=== PATIENT | female | born 1935 | race Caucasian/White ===

== ENCOUNTER 2020-02-02 13:31 | Inpatient (IN) | payer MEDICARE, MEDICAID ==
[2020-02-02] MEDS ORDERED: Acetaminophen 325 MG TAB PO PRN (16:47)
[2020-02-02] MEDS ORDERED: Acetaminophen 650 MG Suppository PR PRN (16:47)
[2020-02-02 17:33] LABS: Hemoglobin 9.1 g/dL (12.0-16.0)
[2020-02-02 17:48] LABS: Lactic Acid 1.3 mmol/L (0.5-2.2)
[2020-02-02 17:52] LABS: Anion Gap 11 mmol/L (10-20); BUN (Urea Nitrogen) 14 mg/dL (9.8-20.1); Calc. Creatinine Clearance 37 mL/min (70-130); Calcium 8.5 mg/dL (7.8-10.44); Carbon Dioxide 24 mmol/L (23-31); Chloride 91 mmol/L (98-107); Glucose 98 mg/dL (83-110); Magnesium 1.4 mg/dL (1.6-2.6); Potassium 3.3 mmol/L (3.5-5.1); Sodium 123 mmol/L (136-145)
--- NOTE | 2020-02-02 17:54 | PDOC.HHP ---
Hospitalist HPI - History of Present Illness History of Present Illness: ADMISSION DATE: 02/02/2020 TIME OF ASSESSMENT: 1600 PRIMARY CARE PHYSICIAN: Dr. Jackson CHIEF COMPLAINT: Syncope and fall HPI: This is an 84-year-old woman who presents to the emergency department today after having a syncopal episode at home. It was witnessed by her daughter who is with her. Patient states that she completely blacked out and fell backwards onto her back. She hit the back of her head but denies having any discomfort associated with that. Complains mainly of left hip pain and was unable to stand following the fall. Reports having a mechanical fall yesterday afternoon while she was home alone. The patient states that she was doing laundry and bent over to get clothing out of the dryer. Upon standing up she lost her balance and fell backwards onto her back. She was able to stand up and walk without difficulty after that though she does report having mild discomfort. Denies any preceding lightheadedness or dizziness. No chest pain palpitations or recent shortness of breath. Patient states that today however she did feel lightheaded prior to the syncopal event. EMS was called and she was alert and oriented upon their arrival. She is not sure how long she had loss of consciousness but thinks she recalls her daughter calling her name when she was on the ground. ROS: She states she has been doing well in recent days. Denies having any nausea or vomiting. No complaints of dizziness. Has not had any fevers chills or sweats. No cough or hemoptysis. Reports frequent urination which she states comes and goes but denies any dysuria. Endorses low appetite and eats small quantities throughout the day. States her fluid intake is not the best. Denies any abdominal pain. Ports normal bowel movements. All other review systems are negative ED COURSE: She was initially seen at [facility] where she underwent she underwent a CT of the head that showed no acute intracranial findings. Chest x-ray done showed no acute thoracic findings. CT obtained of the left lower extremity demonstrated a pathologic fracture of the greater trochanter the 2.4 cm destructive lesion present in the trochanteric itself. Laboratory studies showed a white count of 11.1, hemoglobin 9.4, hematocrit 27.8, platelets 173, neutrophils 86.4%, sodium 123, BUN 15, GFR 53, creatinine 0.99. T is notable for bilirubin of 1.6. Otherwise unremarkable. UA showed trace blood, positive nitrites, large leukocyte esterase, 21-50 white blood cells, 4+ bacteria. She received IV fluid in the ED and fentanyl was given for her pain. PAST MEDICAL HISTORY: 1. Hyperlipidemia 2. Hypertension 3. Hyponatremia 4. Aortic valve disorder 5. History of skin cancer PAST SURGICAL HISTORY: Reports excision of an area of skin cancer in her left thigh SOCIAL HISTORY: Patient lives alone but states her daughter lives next door. Her daughter spends every morning with her from 9-12 and she frequently has visitors. Recently started using a cane to get around her home. Denies any tobacco use or alcohol consumption. FAMILY HISTORY: Noncontributory ALLERGIES: No known drug allergies CURRENT MEDICATIONS: Metoprolol succinate 50 mg p.o. daily Losartan/HCTZ 100 mg / 25 mg p.o. daily Atorvastatin 40 mg p.o. daily Vitamin D2 1000 units p.o. daily Vital signs temp 98.3, HR 64, RR 18, O2 sat 90% on room air, BP 170/71. - Exam General Appearance: NAD, awake alert Eye: PERRL ENT: normocephalic atraumatic, no oropharyngeal lesions, dry oral mucosa Neck: supple, no lymphadenopathy Heart: RRR, normal peripheral pulses, murmur present (loud systolic murmur) Respiratory: CTAB, no wheezes, no rales, no ronchi, normal chest expansion, no tachypnea Gastrointestinal: soft, non-tender, non-distended, normal bowel sounds, no guarding, no rigidity Extremities: no edema Skin: tenting Neurological: cranial nerve grossly intact, normal sensation to touch, no weakness Musculoskeletal: normal tone, normal strength, no muscle wasting Musculoskeletal - other findings: tenderness to left hip region, able to move her legs without severe pain Psychiatric: normal affect, normal behavior, A&O x 3 Hospitalist Results - Labs Result Diagrams: 02/02/20 17:21 Lab results: Hgb 9.1 g/dL (12.0-16.0) L 02/02/20 17:21 Hct 26.2 % (36.0-47.0) L 02/02/20 17:21 Lactic Acid 1.3 mmol/L (0.5-2.2) 02/02/20 17:21 Hospitalist H&P A/P - Problem (1) Syncope and collapse Code(s): R55 - SYNCOPE AND COLLAPSE Status: Acute Assessment and Plan: Possibly secondary to underlying infection and/or dehydration vs. weakness from hyponatremia. Cardiac monitoring. Echo ordered. Carotid US. Unable to obtain Orthostatic BPs due to left leg fracture. Falls precaution. CK ordered. (2) Head injury Code(s): S09.90XA - UNSPECIFIED INJURY OF HEAD, INITIAL ENCOUNTER Status: Acute Assessment and Plan: CT head negative. No neuro deficits on exam. Continue to monitor. Hold DVT pharmacoprophylaxis for now. (3) Fracture of greater trochanter of left femur Code(s): S72.112A - DISP FX OF GREATER TROCHANTER OF LEFT FEMUR, INIT Status: Acute Assessment and Plan: Possibly pathologic fracture. Ortho eval and recommendations appreciated Pain free at present. Hold DVT pharmacoprophylaxis, pending ortho review. (4) UTI (urinary tract infection) Status: Suspected Assessment and Plan: Urinary frequency without dysuria. No culture obtained at [place] [facility] Will repeat UA/UCx via straight cath to obtain a better sample. Mild leukocytosis, monitor. Lactic acid ordered. Afebrile. Hold antibiotics until UA/UCx done. (5) Hyponatremia Code(s): E87.1 - HYPO-OSMOLALITY AND HYPONATREMIA Status: Acute Assessment and Plan: BNP ordered. Await results before giving more fluids. Received IV fluids in ED. Will recheck BMP as well. Consider nephrology consult if indicated. Serum osmolality, urine osmolality and urine Na+ ordered. (6) Total bilirubin, elevated Code(s): R17 - UNSPECIFIED JAUNDICE Status: Acute Assessment and Plan: Repeat LFTs in the AM including direct bili. RUQ ultrasound (7) Hypertension Code(s): I10 - ESSENTIAL (PRIMARY) HYPERTENSION Status: Chronic Assessment and Plan: Monitor BP. Resume home medications as appropriate once verified. (8) Hyperlipidemia Code(s): E78.5 - HYPERLIPIDEMIA, UNSPECIFIED Status: Chronic Assessment and Plan: Resume home medications once verified. - Plan Plan: DVT Prophylaxis with mechanical SCDs. Surrogate decision maker is her daughter Bhavya Patrick.
[2020-02-02 18:23] LABS: CKMB 9.9 ng/mL (0-6.6)
[2020-02-02 18:50] LABS: Bacteria/HPF 4+ HPF (None Seen); Bilirubin Negative (Negative); Blood, Urine Negative (Negative); Clarity Clear (Clear); Glucose, Urine (Dipstick) Normal (Negative); Ketone, Urine Negative (Negative); Leukocyte 500 Leu/uL (Negative); Nitrite Negative (Negative); Protein, Urine (Dipstick) Negative (Neg-Trace); RBC/HPF 0-3 HPF (0-3); Specific Gravity, Urine 1.006 (1.002-1.036); Squamous Epithelial 0-3 HPF (0-3); Urobilinogen Normal mg/dL (Less than 2); WBC/HPF 21-50 HPF (0-3)
[2020-02-02 18:55] LABS: Urine Culture Reflex Yes Yes
[2020-02-02] MEDS ORDERED: Potassium Chloride 20 MEQ TAB PO SCH (19:00)
[2020-02-02] MEDS ORDERED: Sodium Chloride 0.9% 1,000 ML IV SCH (19:00)
[2020-02-02] MEDS ORDERED: Magnesium 2 GM/50 ML 2 GM in Premix Bag 1 BAG IVPB SCH (19:00)
--- NOTE | 2020-02-02 21:38 | ULT ---
BILATERAL CAROTID DUPLEX ULTRASOUND: HISTORY: Syncope TECHNIQUE: Grayscale, color-flow and spectral Doppler ultrasound imaging of the extracranial carotid artery syst ems was performed bilaterally. FINDINGS: There is plaque formation on either side.. There is suggestion of ulcerative plaque in the left commo n carotid artery. The peak systolic velocity in the right ICA measures 65 cm/s with an end-diastolic velocity of 16 cm/ s and a systolic ratio of 1.06. The peak systolic velocity in the left ICA measures 89 cm/s with an end-diastolic velocity of 9 c m/s and a systolic ratio of 0.85. Flow in both vertebral arteries remains antegrade. IMPRESSION: 1. No evidence of hemodynamically significant stenosis in the ICAs on either side. 2. Possible ulcerative plaque in the left common carotid artery.
--- NOTE | 2020-02-02 22:02 | ULT ---
RIGHT UPPER QUADRANT ULTRASOUND: 02/02/20 HISTORY: Elevated bilirubin. FINDINGS: The liver and pancreas appear normal. No gallstones are seen. The gallbladder wall this thickened ashlee suring 4 mm. No pericholecystic fluid is identified. The common duct measures 3 mm in diameter. Ther e is mild hydronephrosis in the right kidney. No free fluid is seen in Farias's pouch. IMPRESSION: 1. Gallbladder wall thickening without cholelithiasis. 2. Mild right sided hydronephrosis. POS: OFF
[2020-02-03 03:57] LABS: #Eosinphils 0.1 thou/uL (0.0-0.7); #Lymphocytes 1.4 thou/uL (1.20-3.40); #Monocytes 0.9 thou/uL (0.11-0.59); #Neutrophils 4.7 thou/uL (1.40-6.50); %Basophils 0.5 % (0.0-1.0); %Eosinophils 0.7 % (0.0-10.0); %Lymphocytes 19.9 % (21.0-51.0); %Monocytes 12.9 % (0.0-10.0); Hemoglobin 9.4 g/dL (12.0-16.0); Mean Corpuscular HGB CONC 34.6 g/dL (32.0-36.0); Mean Corpuscular Hemoglobin 32.5 pg (27.0-31.0); Mean Corpuscular Volume 93.9 fL (78.0-98.0); Mean Platelet Volume 6.5 fL (7.4-10.4); Platelet Count 185 thou/uL (130-400); RBC Distribution Width 11.3 % (11.5-14.5); Red Blood Cell (RBC) Count 2.88 mill/uL (4.20-5.40); White Blood Cell (WBC) Count 7.2 thou/uL (4.8-10.8)
[2020-02-03 04:20] LABS: ALT (SGPT) 11 U/L (8-55); AST (SGOT) 24 U/L (5-34); Albumin 3.3 g/dL (3.4-4.8); Alkaline Phosphatase 71 U/L (40-110); Bilirubin, Direct 0.5 mg/dL (0.1-0.3); Bilirubin, Total 1.2 mg/dL (0.2-1.2); Protein, Total 6.2 g/dL (6.0-8.3)
[2020-02-03 04:22] LABS: Anion Gap 15 mmol/L (10-20); BUN (Urea Nitrogen) 11 mg/dL (9.8-20.1); Calc. Creatinine Clearance 41 mL/min (70-130); Calcium 8.6 mg/dL (7.8-10.44); Carbon Dioxide 19 mmol/L (23-31); Chloride 95 mmol/L (98-107); Glucose 68 mg/dL (83-110); Lipase 34 U/L (8-78); Sodium 125 mmol/L (136-145)
[2020-02-03] MEDS: Enoxaparin Sodium 40 MG/0.4 ML SYRINGE SC SCH (08:26)
--- NOTE | 2020-02-03 08:57 | RAD ---
Exam: Left hip 2 views: HISTORY: Follow-up left hip fracture, injury COMPARISON: Prior CT scan, 02/02/2020 FINDINGS: Severe bone demineralization with prominent vascular calcification. Evidence for a minimally displaced fracture involving the greater trochanter which appears to be less displaced than on the prior CT scan. IMPRESSION: Evidence for a greater trochanteric fracture with minimal displacement but less so than on the prior CT scan.
[2020-02-03] MEDS: cefTRIAXone\\ROCEPHIN 1 GM in Sodium Chloride 0.9% 100 ML IVPB SCH (10:36)
--- NOTE | 2020-02-03 12:01 | CON ---
DATE OF CONSULTATION: This is Lenny Simmons PA-C dictating a report for Collins Hilliard MD. HISTORY OF PRESENT ILLNESS: We are asked by hospitalist, Zahraa GREEN, to see the patient for a fracture on her left troch. The patient states she has fallen a few times. She is quite hard of hearing, but remembers falling and feeling like she had blacked out. She landed on her left hip 2 times in the past week or 2. She is being worked up for reasons for blacking out and her dizziness. Currently, today, she is sitting up in the bed. Her legs are off the side of the bed. She does not appear to be in much pain. She is moving both lower extremities well. She has a little tenderness to palpation over the proximal hip. Denies any numbness or tingling down the legs. PAST MEDICAL HISTORY: Can be gleaned from Zahraa GREEN's note. SOCIAL HISTORY: Can be gleaned from Zahraa GREEN's note. PAST SURGICAL HISTORY: Can be gleaned from Zahraa GREEN's note. FAMILY HISTORY: Can be gleaned from Zahraa GREEN's note. MEDICATIONS: Can be gleaned from Zahraa GREEN's note. ALLERGIES: CAN BE GLEANED FROM ZAHRAA GREEN'S NOTE. REVIEW OF SYSTEMS: For orthopedics purposes, left hip pain. Otherwise, rest of review of systems currently is negative. PHYSICAL EXAMINATION: GENERAL: Well-nourished, pleasant female, who is very hard of hearing, sitting up in her bed with legs off the side in room 292, in no acute distress. Speech is clear. She is answering questions appropriately. HEENT: Scalp appears atraumatic and no tenderness with palpation. Face symmetric. Tongue midline. NECK: Supple. Trachea in midline. EXTREMITIES: Upper extremities, equal size, shape, symmetry. Normal bulk and tone. Respirations 16. No acute distress. Lower extremities also equal size, shape, symmetry. Normal bulk and tone. She does have some palpable tenderness over the proximal hip, but it does not appear to bother her all that much. She is moving both lower extremities well. Sensations, pulses intact. ASSESSMENT: Tip of the troch on the left fractured could be a pathologic fracture, which needs to be worked up. PLAN: I spoke with the patient, informed her she does not need surgery. She is quite elated by this. Probably, does not need any further orthopedic followup, but if there is truly a pathologic fracture, then she may want to get an MRI of that hip and have a further workup. If the patient's hip pain gets worse, should there are further problems, we will be happy to see her back. Job ID: [id number]
--- NOTE | 2020-02-03 16:12 | PDOC.HOSPP ---
- Subjective Encounter Date: 02/03/20 Encounter Time: 09:00 Subjective: Patient was seen and examined in bed. She did complain of some mild pain in her hip otherwise generally had no complaint. She was hungry and wanted to eat. She denied any chest pain or shortness of breath. - Objective Vital Signs & Weight: Vital Signs (12 hours) Temp Pulse Resp BP BP Pulse Ox 02/03/20 15:37 98.6 F 81 16 108/51 L 97 02/03/20 11:02 98.4 F 76 17 131/63 98 02/03/20 08:25 98.4 F 66 16 168/70 H 99 Weight Admit Weight 100 lb Weight 100 lb I&O: 02/02/20 02/03/20 02/04/20 06:59 06:59 06:59 Intake Total 300 Output Total 560 Balance -260 Result Diagrams: 02/03/20 03:21 02/03/20 03:21 Hospitalist ROS - Medication Medications: Active Medications Generic Name Dose Route Start Last Admin Trade Name Kieranq PRN Reason Stop Dose Admin Enoxaparin Sodium 40 mg 02/03/20 09:00 02/03/20 08:26 Enoxaparin Sodium 40 Mg/0.4 Ml Syringe SC 40 mg 0900 CHARLES Administration Ceftriaxone Sodium 1 gm/ 100 mls @ 200 mls/hr 02/03/20 10:00 02/03/20 10:36 Sodium Chloride IVPB 100 mls Q24HR CHARLES Administration - Exam General Appearance: awake alert Eye: PERRL, anicteric sclera Heart: RRR, no murmur, no gallops, normal peripheral pulses Respiratory: no wheezes, no rales, no ronchi, no tachypnea Gastrointestinal: soft, non-tender, non-distended, normal bowel sounds Extremities: no cyanosis, no clubbing, no edema Extremities - other findings: Mild tenderness in left hip Musculoskeletal: normal tone, normal strength, no muscle wasting Psychiatric: normal affect, A&O x 3 Hosp A/P - Plan 84-year-old female patient with a history of squamous cell cancer of the skin, valvular heart disease admitted a day ago on account of recurrent falls A pathologic fracture of the left greater trochanter was noted on imaging. Recurrent falls Etiology unclear with telemetry showing normal sinus rhythm Heart rate in the 50s to 60s Echocardiogram shows severe aortic stenosis Continue on telemetry monitoring Consult cardiology. Pathology call left trochanteric fracture. Orthopedics evaluatedno surgery recommended. Given her history of skin cancer would appreciate input from oncology. Oncology consult placed Severe aortic stenosis. Noted on echocardiogram Also has aortic stenosis murmur Possible cause of her falls Consult cardiology. Hypertension Blood pressure within normal limits Hold antihypertensive medications Gallbladder wall thickening. Gallbladder wall about 4 mm on ultrasound scan Done to evaluate mild hyperbilirubinemia Consult GI for the need of any further work-up. Hyponatremia Sodium was 123 now 125 Urine osmolality 222 Likely SIADH TSH within normal limits We will check serum cortisol in a.m. Fluid restrict to 1.5 L for the day Monitor BMP CODE STATUSfull code DVT prophylaxisLovenox
--- NOTE | 2020-02-03 18:14 | CON ---
DATE OF CONSULTATION: 02/03/2020 REASON FOR CONSULT: Swollen gallbladder wall on ultrasound. HISTORY OF PRESENT ILLNESS: Ms. Patrick is an 84-year-old female with history comes from review of the chart. She is very hard of hearing. She is here for a hip fracture. Apparently, she fell at home and broke her left hip. She denies any abdominal pain. She denies any pain with eating. She denies any heartburn. She denies any reflux. Reviewing the chart, it seems that on admission, she had a mildly elevated bilirubin of 1.6 on 02/01, following day a direct was 0.5 and total was 1.2. At some point in time, all of this triggered an ultrasound of the abdomen that showed the gallbladder was mildly thickened with no gallstones and there was some mild right-sided hydronephrosis. Duct was 3 mm. Again, in talking with the patient, she denies any abdominal pain, loss of appetite, or loss of weight. Denies bleeding, melena, or hematochezia. PAST MEDICAL HISTORY: Recent fall with left hip fracture, hyperlipidemia, hypertension, history of skin cancer in the past, history of aortic valve disorder. PAST SURGICAL HISTORY: Skin cancer in left thigh. SOCIAL HISTORY: The patient lives at home alone and has a daughter close by, next door apparently. ALLERGIES: NONE KNOWN. MEDICATIONS: At home; 1. Losartan. 2. Atorvastatin. 3. Vitamin D. 4. Metoprolol. Present medications here; 1. Tylenol. 2. Rocephin. 3. Lovenox. 4. Pneumovax. 5. Normal saline. PHYSICAL EXAMINATION: GENERAL: The patient is resting comfortably in bed. She is hard of hearing. VITAL SIGNS: Temperature 98, pulse blood pressure 108/51. NECK: There is mild JVD. LUNGS: Clear. HEART: Regular rate and rhythm without clicks or murmurs. ABDOMEN: Soft and nontender. There is no palpable hepatosplenomegaly. There is no hepatojugular reflux. EXTREMITIES: There is no peripheral edema. LABORATORY DATA: As per HPI. Echocardiogram shows EF 50% to 60%, severe aortic stenosis is present, moderate aortic regurgitation is noted. ASSESSMENT: 1. Recurrent syncopal episodes, likely related to severe aortic stenosis. 2. Mild elevation of bilirubin, resolved. 3. Mild edema of the gallbladder wall. There is nothing that appears pathologic about this, and her age with severe aortic stenosis, we would not even consider working this up. We will sign off at this time. If I can be of any further assistance in the patient's care, please do not hesitate to contact me. Job ID: [id number]
[2020-02-04 08:08] LABS: Anion Gap 11 mmol/L (10-20); BUN (Urea Nitrogen) 16 mg/dL (9.8-20.1); Calc. Creatinine Clearance 39 mL/min (70-130); Carbon Dioxide 26 mmol/L (23-31); Chloride 93 mmol/L (98-107); Glucose 95 mg/dL (83-110); Potassium 3.9 mmol/L (3.5-5.1); Sodium 126 mmol/L (136-145)
[2020-02-04] MEDS: Enoxaparin Sodium 40 MG/0.4 ML SYRINGE SC SCH (09:07)
[2020-02-04] MEDS: cefTRIAXone\\ROCEPHIN 1 GM in Sodium Chloride 0.9% 100 ML IVPB SCH (09:07)
[2020-02-04] MEDS ORDERED: Iopamidol-370 76% 500 ML 1 ML ONE (09:48)
--- NOTE | 2020-02-04 11:37 | CON ---
DATE OF CONSULTATION: HISTORY OF PRESENT ILLNESS: Jenna Patrick is an 84-year-old white female, whom I have been following since July 2017. When she was seen at that time, she stated that she had a heart murmur for over 10 years. She was found to have severe aortic stenosis, but was asymptomatic. She has continued to be followed every six months and continues to deny any chest pain, shortness of breath, peripheral edema, or syncope. Her last echocardiogram was in December 2018, which revealed an ejection fraction of 55% to 60%. Evidence of diastolic dysfunction, moderate aortic regurgitation, severe aortic stenosis with a mean gradient of 31 mm, peak gradient of 54 mm, and aortic valve area of 0.53 cm2, moderate mitral regurgitation, and moderate tricuspid regurgitation. She was last seen in June 2019 via a telemedicine visit and continued to be asymptomatic. She continues to deny any shortness of breath, chest pain, orthopnea, PND, or leg edema. She was admitted yesterday after a syncopal episode at home. Also, the day prior to that, she was doing laundry and bent over to get a load of clothes out of the grain drier and fell backwards onto her back. This was unwitnessed. Then, yesterday on the day of admission, she walked into the kitchen, had a syncopal episode and fell onto her back. This was witnessed by her daughter. EMS was called. When they arrived, she was alert and oriented, but complained of left hip pain. X-rays of this revealed a left femur fracture with Orthopedics feels does not require any operative intervention. However, CT scan revealed a 2.4 cm destructive lesion and has felt that this is a pathological fracture. Ms. Patrick denies any left hip discomfort until this fall. PAST MEDICAL HISTORY: Hypertension, chronic hyponatremia, hyperlipidemia, aortic stenosis, and history of skin cancer. OPERATIONS: Excision of left thigh squamous cell carcinoma MEDICATIONS: 1. Atorvastatin 40 daily. 2. Vitamin D2 of 1000 units daily. 3. Losartan/hydrochlorothiazide 100/25 daily. 4. Metoprolol-XL 25 mg daily. ALLERGIES: NONE. SOCIAL HISTORY: She stopped smoking 40 years ago. She does not drink. FAMILY HISTORY: Negative for coronary artery disease. REVIEW OF SYSTEMS: A 10-point review of systems is otherwise unremarkable. PHYSICAL EXAMINATION: VITAL SIGNS: Blood pressure 135/65 and pulse of 63. HEENT: PERRL. NECK: Supple. CHEST: Clear. CARDIAC: S1 and S2 normal without any S3 or S4. There is a 2/6 systolic ejection murmur heard loudest in the second right intercostal space. ABDOMEN: Normal bowel sounds without tenderness or organomegaly. EXTREMITIES: Revealed no clubbing, cyanosis, or edema. NEUROLOGIC: Grossly intact. SKIN: Warm and dry. LABORATORY DATA: EKG revealed sinus arrhythmia, but otherwise unremarkable. Echocardiogram revealed ejection fraction of 55% to 60% with evidence of diastolic dysfunction, moderate mitral regurgitation, severe aortic stenosis with peak gradient of 62 mm, mean gradient 33 mm, and aortic valve area 0.75 cm2. Moderate aortic insufficiency and mild tricuspid regurgitation. Head CT revealed no acute intracranial findings. Lower extremity CT reveals a 2.4 cm destructive lesion in the left femur greater trochanter. Carotid Doppler revealed no hemodynamically significant stenosis. There was a possible ulcerated plaque in the left common carotid artery. Abdominal ultrasound revealed gallbladder thickening without chololithiasis and mild right-sided hydronephrosis. Hemoglobin 9.4, hematocrit 27.0, white count 7200, and platelets 185,000. INR 1.1. Sodium 125, potassium 4.0, chloride 95, carbon dioxide 19, BUN 11, and creatinine 0.74. Troponin I 0.074, BNP 399.0, and CK-MB 9.9; however, total CK was not performed. IMPRESSION: 1. Syncope, probably due to severe aortic stenosis. She does not appear to have any other symptoms associated with this. 2. Pathological fracture of the left femur with a 2.4 cm mass. This may be related to left thigh skin cancer that has been previously removed. 3. Hypertension. 4. Hypercholesterolemia. 5. Former smoker. 6. Chronic hyponatremia, which may be related to her losartan/hydrochlorothiazide. 7. Anemia. PLAN: Total CK will be performed as well as fasting lipid profile. Her hyponatremia will continue to be monitored. Ms. Patrick is certainly at very high risk for mortality - approximately 50% over the next year with having an episode of syncope. However, I feel that the pathological fracture needs to be fully evaluated and the treatment and prognosis of this be known prior to embarking upon cardiac evaluation and treatment of her aortic stenosis. Job ID: [id number] [facility]
[2020-02-04 13:46] LABS: Reticulocyte Count 1.7 % (0.5-1.5)
[2020-02-04 14:06] LABS: Iron 28 ug/dL (50-170); Iron Binding Capacity, Total 219 mcg/dL (265-497)
[2020-02-04 14:31] LABS: Ferritin 468.96 ng/mL (10-291)
--- NOTE | 2020-02-04 16:05 | CT ---
CT THORAX WITH CONTRAST CT ABDOMEN WITH CONTRAST CT PELVIS WITH CONTRAST: DATE: 02/04/2020 HISTORY: 84-year-old female with bone lesion involving left proximal femur suspected to be a metastasis. Searc h for primary tumor. COMPARISON: No prior CTs of chest, abdomen, or pelvis available. TECHNIQUE: IV iodinated contrast media: Administered Oral contrast media: Administered Single phase scans of thorax, abdomen, and pelvis. FINDINGS: There is an approximately 3 x 2.5 x 2 cm osteolytic lesion at the base of the lateral left greater tr ochanter, with pathologic fracture with slight displacement of superior distal fragment. There is diffuse osteopenia. No other definite destructive osseous lesion is identified. Multilevel high-grade degenerative disc disease associated with exaggerated kyphosis of the thoracic spine. Grade 1 spondylolisthesis at L5-S1 due to bilateral severe facet DJD. Atherosclerosis, and ectasia of entire aorta. No evidence of neoplastic tumor involving liver, kidneys, adrenals, pancreas, or spleen. No mediastinal or hilar lymphadenopathy. Atherosclerosis of coronary arteries. No cardiomegaly or pericardial effusion. No infiltrate or suspicious pulmonary mass. No pleural effusion or pneumothorax. No small bowel dilation, ascites, or pneumoperitoneum. Normal retrocecal appendix. Decompressed urinary bladder. The dense enteric contrast material in the central portion of the cecum and ascending colon, is flank ed posteriorly by low-density material, presumably liquid stool, less likely neoplasm. Multiple descending and sigmoid colonic diverticula without definite evidence of diverticulitis. IMPRESSION: 1) osteolytic lesion causing pathologic fracture at base of greater trochanter of left proximal femur . 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 2) no convincing evidence of malignancy elsewhere in the chest, abdomen, or pelvis. 3) thoracic and lumbar spondylosis.
--- NOTE | 2020-02-04 17:21 | PDOC.HOSPP ---
- Subjective Encounter Date: 02/04/20 Encounter Time: 11:00 Subjective: F/u : femur fracture, aortic stenosis THe patient states she was getting clothes out of her dryer, felt funny and fell backward. She states she did not pass out . SHe did not feel dizzy or have chest pain. She fell recently prior to that as well. She couldn't get up so had her daughter call the ambulance Patient reports no pain in her legs and is ambulating with a walker. She does not use a walker at home. Hyponatremia - patient has a sodium of 126. She drinks beer occasionally. She denies dizziness Aortic stenosis - patient denies OB or dizziness with ambulation. She was seen by cardiology. She states she wants her leg fixed before her heart is fixed - Objective Vital Signs & Weight: Vital Signs (12 hours) Temp Pulse Pulse Pulse Resp BP BP 02/04/20 15:16 97.9 F 94 20 02/04/20 11:36 97.7 F 85 18 02/04/20 10:35 87 132 H 156/71 H 170/91 H 02/04/20 08:00 97.7 F 85 16 BP BP Pulse Ox 02/04/20 15:16 143/78 H 98 02/04/20 11:36 145/68 H 93 L 02/04/20 10:35 02/04/20 08:00 156/71 H 98 Weight Admit Weight 100 lb Weight 104 lb 3.2 oz I&O: 02/03/20 02/04/20 02/05/20 06:59 06:59 06:59 Intake Total 300 530 Output Total 560 300 Balance -260 230 Result Diagrams: 02/03/20 03:21 02/04/20 07:17 Hospitalist ROS - Review of Systems Constitutional: denies: fever, chills - Medication Medications: Active Medications Generic Name Dose Route Start Last Admin Trade Name Freq PRN Reason Stop Dose Admin Enoxaparin Sodium 40 mg 02/03/20 09:00 02/04/20 09:07 Enoxaparin Sodium 40 Mg/0.4 Ml Syringe SC 40 mg 0900 CHARLES Administration Ceftriaxone Sodium 1 gm/ 100 mls @ 200 mls/hr 02/03/20 10:00 02/04/20 09:07 Sodium Chloride IVPB 100 mls Q24HR CHARLES Administration - Exam General Appearance: NAD, awake alert Eye: PERRL, anicteric sclera ENT: normocephalic atraumatic, no oropharyngeal lesions Neck: no JVD Heart: RRR, no gallops, no rubs Heart - other findings: loud systolic murmur right intercostal space Respiratory: CTAB, no wheezes, no rales, no ronchi Gastrointestinal: soft, non-tender, non-distended, normal bowel sounds Extremities: no cyanosis, no clubbing, no edema Skin: normal turgor, no lesions, no rashes Neurological: cranial nerve grossly intact, normal sensation to touch Musculoskeletal: normal tone, normal strength, no muscle wasting Psychiatric: normal affect, normal behavior, A&O x 3 Hosp A/P - Plan CT cervical spine: diffuse moderately severe degenerative changes CT brain 02/01: no acute findings Abdominal US; gallbladder wall thickening. Mild right hydronephrosis Carotid doppler: plaque left common carotid. No significant stenosis Hip X ray: greater trochanteric fracture, minimally displaced CT lower extremity: pathologic fracture of greater trochanter. 2.4 cm destructive lesion present in the trochanter itself. CT chest/abdomen/pelvis: osteolytic lesion causing pathologic fracture at base of greater trochanter of left proximal femur. Metastatic lesion vs plasmacytoma. This is an 84 year old female who presented with #Severe Aortic stenosis #Possible syncope - noted on ECHO. Patient denies passing out, but per H and P there is question of syncope - per cardiology, defer further evaluation pending pathologic fracture workup . 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 Urine osmolarity low, but urine sodium normal. - will implement 2L fluid restriction #Pathologic Hip fracture - greater trochanteric fracture noted on CT scan . Ortho consulted, no surgical intervention needed. - CT chest/abdomen/pelvis showss osteolytic lesion, metastases vs plasmacytoma. Oncology consulted, bone scan ordered as well - will check vitamin D level #Anemia - Hb 9.4. Iron studies show anemia of chronic disease - vitamin B12 borderline low 240, will start supplementation Dispo: pending bone scan
[2020-02-04] MEDS ORDERED: Cyanocobalamin (Vitamin B-12) 1,000 MCG TAB PO SCH (17:30)
--- NOTE | 2020-02-04 17:56 | PDOC.EVN ---
Event Note - Event Note Event Note: Discussed CT results with the patient. She understood the possibility of a mass. Discussed whether she was interested in a biopsy, she said she wasn't sure and would like to discuss with her son first. She is leaning towards going home and maybe working this up at a further time. She said her son lives in [place]
--- NOTE | 2020-02-04 19:39 | CON ---
DATE OF CONSULTATION: REASON FOR CONSULTATION: Possible pathologic fracture. HISTORY OF PRESENT ILLNESS: 84-year-old female, presenting to the ER after a syncopal episode where she blacked out, fell back, and hit her head. This was supposedly witnessed by her daughter. She has a history of multiple falls. She currently denies any pain or discomfort. She had a CT showing a 2.4 cm destructive lesion in the greater trochanter of the left femur with some pathological fracture to the area. 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 Kline in September 2012. She has no other history of cancer. She denies any fever, shortness of breath, cough, breast lumps, bumps, skin changes, nausea, vomiting, or diarrhea. She denies smoking; however, she does follow with Dr. Lacy and he states that she quit smoking 10 years ago, so unsure if she has smoked in the past. The patient has been seen by Orthopedics and no intervention is needed at this time. She has severe aortic stenosis requiring intervention, however, she has a high mortality rate due to severity and syncopal episodes and due to potential pathologic fracture, Dr. Lacy does not want to do anything for these stenosis at this time until her pathologic fracture is completely worked up. REVIEW OF SYSTEMS: Ten-point review of systems negative except as per HPI. PAST MEDICAL HISTORY: 1. Hyperlipidemia. 2. Hypertension. 3. Aortic stenosis. 4. 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 PAST SURGICAL HISTORY: Skin cancer removal. SOCIAL HISTORY: Lives along with daughter next door. Denies smoking, however, some charted history states that she is a former smoker. FAMILY HISTORY: Noncontributory. ALLERGIES: NO KNOWN DRUG ALLERGIES. CURRENT MEDICATIONS: Reviewed. PHYSICAL EXAMINATION: VITAL SIGNS: Temperature 97.7, pulse 85, respirations 18, saturating 93% on room air, blood pressure 145/68. GENERAL APPEARANCE: The patient is sitting up in bed, in no acute distress. Appears stated age. HEENT: Normocephalic and atraumatic. LYMPHATICS: No palpable lymphadenopathy in the cervical, axillary, or inguinal chains. CARDIAC: S1, S2. Regular rate and rhythm with a severe 3/6 to 4/6 systolic murmur. RESPIRATIONS: Clear to auscultation bilaterally. PSYCHIATRIC: Awake, alert, and oriented x3. LABORATORY DATA: Show hemoglobin 9.4, WBC 7.2, platelets 185, MCV 93.9. Sodium 126, potassium 3.9, creatinine 0.80, bilirubin 1.2, direct bilirubin 0.5, troponin 0.074, total protein 6.2. IMAGING DATA: As reported in HPI. ASSESSMENT AND PLAN: An 84-year-old female with possible pathologic fracture and mass in the left greater trochanter of the hip. I do not expect this hip lesion is related to her prior history of squamous cell skin cancer, which extremely rarely metastasized this. It is a cancer that is most likely metastatic from different primary such as lung, breast, or other. According to Dr. Lacy's note, she is a former smoker; however, she denies smoking, but does require evaluation for a primary site and one that potentially could be more easily accessible, but if none is found, then we will need to biopsy the hip. We will check CT chest, abdomen, and pelvis and bone scan. She is also anemic, about a 2 g difference the since last month and prior to that was not anemic, we will send for anemia panel as well. We will follow up scans and determine need for hip biopsy versus other. Thank you for this consult. Job ID: [id number]
[2020-02-04] MEDS: Atorvastatin Calcium 40 MG TAB PO SCH (20:38)
[2020-02-05 04:27] LABS: #Eosinphils 0.1 thou/uL (0.0-0.7); #Lymphocytes 1.3 thou/uL (1.20-3.40); #Monocytes 0.8 thou/uL (0.11-0.59); %Basophils 0.7 % (0.0-1.0); %Eosinophils 1.6 % (0.0-10.0); %Lymphocytes 20.9 % (21.0-51.0); %Neutrophils 63.8 % (42.0-75.0); Hemoglobin 8.2 g/dL (12.0-16.0); Mean Corpuscular HGB CONC 35.1 g/dL (32.0-36.0); Mean Corpuscular Hemoglobin 32.7 pg (27.0-31.0); Mean Corpuscular Volume 93.2 fL (78.0-98.0); Mean Platelet Volume 6.7 fL (7.4-10.4); Platelet Count 180 thou/uL (130-400); RBC Distribution Width 11.4 % (11.5-14.5); Red Blood Cell (RBC) Count 2.51 mill/uL (4.20-5.40); White Blood Cell (WBC) Count 6.3 thou/uL (4.8-10.8)
[2020-02-05 04:53] LABS: Anion Gap 13 mmol/L (10-20); BUN (Urea Nitrogen) 11 mg/dL (9.8-20.1); Calc. Creatinine Clearance 44 mL/min (70-130); Calcium 8.8 mg/dL (7.8-10.44); Carbon Dioxide 26 mmol/L (23-31); Cardiac Risk 2.7 (Less than 4.5); Chloride 91 mmol/L (98-107); Cholesterol 192 mg/dl (< 200 Desired); Glucose 94 mg/dL (83-110); HDL Cholesterol 71 mg/dL (>60 Neg Risk); LDL Cholesterol, Calculated 109 mg/dL; Potassium 3.6 mmol/L (3.5-5.1); Sodium 126 mmol/L (136-145); Triglycerides 62 mg/dL (Less than 150)
[2020-02-05] MEDS: Enoxaparin Sodium 40 MG/0.4 ML SYRINGE SC SCH (08:51)
[2020-02-05] MEDS: Cyanocobalamin (Vitamin B-12) 1,000 MCG TAB PO SCH (08:51)
[2020-02-05] MEDS: cefTRIAXone\\ROCEPHIN 1 GM in Sodium Chloride 0.9% 100 ML IVPB SCH (10:49)
--- NOTE | 2020-02-05 13:04 | NM ---
WHOLE BODY BONE SCAN: HISTORY: Greater trochanteric fracture of the left femur. Evaluate for other metastatic lesions in th e skeleton RADIOPHARMACEUTICAL: 30.2 mCi technetium-99m MDP injected intravenously. COMPARISON: CT chest abdomen and pelvis 02/04/2020; CT brain 02/02/2020: CT chest 05/12/2007 FINDINGS: There is increased uptake in the shoulders, elbows, and hands consistent with degenerative changes. Abnormal increased uptake of the radiopharmaceutical is seen in the inferior tip of the right scapula . There is an abnormal uptake of the radiopharmaceutical in the medial aspect of the left clavicle, near the sternoclavicular joint. Subtle increased uptake of the radiopharmaceutical is seen in the le ft greater trochanter. Very subtle uptake in multiple left anterior ribs represent healing rib fractures. Uptake seen anteriorly overlying the skull may be superimposition of multiple bones. Tracer excretion through the kidneys is within normal limits. IMPRESSION: 1. The lesion in the inferior tip of the right clavicle corresponds with a subtle mixed osseous lesio n. This lesion is new compared to prior CT from 2007. 2. Abnormality in the medial left clavicle corresponds with an area of sclerosis in the clavicle. Thi s area is new compared to the prior CT from 2007.
[2020-02-05 13:58] LABS: INR-International Normal Ratio 1.1; PTT 40.6 sec (22.9-36.1); Prothrombin Time 14.4 sec (12.0-14.7)
[2020-02-05] MEDS ORDERED: Sodium Bicarbonate 2.5 MEQ/5 ML VIAL ONE (14:48)
[2020-02-05] MEDS ORDERED: Lidocaine 1% PF 5 ML VIAL ONE (14:48)
--- NOTE | 2020-02-05 17:07 | PDOC.HOSPP ---
- Subjective Encounter Date: 02/05/20 Encounter Time: 11:00 Subjective: F/u : femoral fracture, aortic stenosis The patient has ambulated without dizziness or lightheadness. She denies chest pain. She wants to go home . Sierra has no pain while ambulating in her left leg. Discussed with grand-son Ronal, they decided to proceed with the biopsy . CT guided biopsy done today. Per radiology, they did not see any evidence of a mass or anything pathological . - Objective Vital Signs & Weight: Vital Signs (12 hours) Temp Pulse Resp BP BP Pulse Ox 02/05/20 16:40 98.2 F 87 22 H 140/63 93 L 02/05/20 11:52 97.9 F 93 20 123/65 100 02/05/20 07:49 98.4 F 72 14 127/62 95 Weight Admit Weight 100 lb Weight 105 lb I&O: 02/04/20 02/05/20 02/06/20 06:59 06:59 06:59 Intake Total 530 1080 Output Total 300 150 Balance 230 930 Result Diagrams: 02/05/20 04:05 02/05/20 04:05 Hospitalist ROS - Review of Systems Constitutional: denies: fever, chills - Medication Medications: Active Medications Generic Name Dose Route Start Last Admin Trade Name Freq PRN Reason Stop Dose Admin Atorvastatin Calcium 40 mg 02/04/20 21:00 02/04/20 20:38 Atorvastatin Calcium 40 Mg Tab PO 40 mg HS CHARLES Administration Cyanocobalamin 1,000 mcg 02/05/20 09:00 02/05/20 08:51 Cyanocobalamin (Vitamin B-12) 1,000 Mcg Tab PO 1,000 mcg DAILY CHARLES Administration Enoxaparin Sodium 40 mg 02/03/20 09:00 02/05/20 08:51 Enoxaparin Sodium 40 Mg/0.4 Ml Syringe SC 40 mg 0900 CHARLES Administration Ceftriaxone Sodium 1 gm/ 100 mls @ 200 mls/hr 02/03/20 10:00 02/05/20 10:49 Sodium Chloride IVPB 100 mls Q24HR CHARLES Administration - Exam General Appearance: NAD, awake alert Eye: PERRL, anicteric sclera ENT: normocephalic atraumatic, no oropharyngeal lesions Neck: no JVD Heart: RRR, no murmur, no gallops, no rubs Respiratory: CTAB, no wheezes, no rales, no ronchi Gastrointestinal: soft, non-tender, non-distended, normal bowel sounds Extremities: no cyanosis, no clubbing, no edema Skin: normal turgor, no lesions, no rashes Neurological: cranial nerve grossly intact, normal sensation to touch, no weakness Hosp A/P - Plan CT cervical spine: diffuse moderately severe degenerative changes CT brain 02/01: no acute findings Abdominal US; gallbladder wall thickening. Mild right hydronephrosis Carotid doppler: plaque left common carotid. No significant stenosis Hip X ray: greater trochanteric fracture, minimally displaced CT lower extremity: pathologic fracture of greater trochanter. 2.4 cm destructive lesion present in the trochanter itself. CT chest/abdomen/pelvis: osteolytic lesion causing pathologic fracture at base of greater trochanter of left proximal femur. Metastatic lesion vs plasmacytoma. Bone scan: sclerosis of the medial left clavicle. Subtle mixed osseous lesion inferior tip of right clavicle This is an 84 year old female who presented with syncopal episode/fall #Severe Aortic stenosis #Possible syncope - noted on ECHO. Cardiology is following. May need a valve replacement at some point #Hip fracture - greater trochanteric fracture noted on CT scan . Ortho consulted, no surgical intervention needed. CT chest/abdomen pelvis showed a lytic lesion. Bone scan shows no other pathologic lesions. Oncology has ordered SPEP and kappa/lambda ratio - bone biopsy done today shows no evidence of myeloma or any mass per radiology. Will await pathology results. 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 Continue 2L fluid restriction. Repeat BMP tomorrow #Anemia - Hb 9.4. Iron studies show anemia of chronic disease - vitamin B12 borderline low 240, started supplementation Dispo: likely d/c tomorrow if no further cardiac workup needed
[2020-02-05] MEDS: Atorvastatin Calcium 40 MG TAB PO SCH (20:04)
[2020-02-06 05:06] LABS: Anion Gap 12 mmol/L (10-20); BUN (Urea Nitrogen) 9 mg/dL (9.8-20.1); Calc. Creatinine Clearance 47 mL/min (70-130); Calcium 8.6 mg/dL (7.8-10.44); Carbon Dioxide 26 mmol/L (23-31); Chloride 91 mmol/L (98-107); Glucose 87 mg/dL (83-110); Potassium 3.5 mmol/L (3.5-5.1); Sodium 125 mmol/L (136-145)
[2020-02-06] MEDS: Cyanocobalamin (Vitamin B-12) 1,000 MCG TAB PO SCH (08:55)
[2020-02-06] MEDS: Enoxaparin Sodium 40 MG/0.4 ML SYRINGE SC SCH (08:55)
[2020-02-06] MEDS: cefTRIAXone\\ROCEPHIN 1 GM in Sodium Chloride 0.9% 100 ML IVPB SCH (08:59)
--- NOTE | 2020-02-06 10:16 | CT ---
CT-guided biopsy left proximal femur: 02/05/2020 HISTORY: 84-year-old female with displaced fracture of greater trochanter of left proximal femur, initially th ought to be pathologic fracture. TECHNIQUE: Signed informed consent obtained. Patient placed in right lateral decubitus position. Skin lateral to the left hip prepped and draped in usual sterile fashion. 25-gauge needle used to apply buffered lidocaine superficially, then deeply under step CT guidance. 17-gauge introducer needle advanced to t he lateral edge of the fractured defect. 18-gauge biopsy needle advanced in coaxial fashion through the introducer needle. Biopsy gun fired, yielding tiny fragments of tissue which was smeared on slide and given to pathologist. This was repeated 3 more times for total of 4 passes. Introducer needle was removed. There was no significant hemorrhage or hematoma. Patient tolerated the procedure very we ll. No complications. FINDINGS: There is a moderately thick layer of edema or contusion in the superficial subcutaneous fat lateral t o the left greater trochanteric displaced fracture. There is also ecchymosis of the overlying skin. It was warranted the patient has history of multiple falls, including apparently fall on the left hip . Subsequent step CT images demonstrate introducer needle distal tip at lateral edge of fracture gap between the fragments. Images obtained after removal of the introducer needle demonstrates gas wi thin this fracture gap. No malignant cells are visualized by the pathologist on any of the tissue samples. IMPRESSION: 1.) Technically successful 18-gauge core biopsy of gap between fracture fragments of greater trochant er of left proximal femur. 2) awaiting final pathology results. 3) if the final histology results are negative for neoplasm, then the possibility that this could be a traumatic avulsion fracture of the greater trochanter, rather than a pathologic fracture, should be entertained. In that case, serial follow-up CTs of the left hip are recommended, beginning in 3-6 months. This was discussed by telephone with Dr. Hamm prior to this dictation. Transcribed Date/Time: 02/06/2020 10:16 AM
--- NOTE | 2020-02-06 11:48 | PQF ---
CLINICAL DOCUMENTATION CLARIFICATION FORM: Dear Dr. Hamm Date: 02/06/2020 Please exercise your independent, professional judgment in responding to the clarification form. Clinical indicators are provided on the bottom of this form for your review. Please check appropriate box(s): [ X ] Moderate Protein Calorie Malnutrition [ ] Other Malnutrition (please specify) [ ] Underweight without malnutrition [ ] Other diagnosis [ ] Unable to determine For continuity of documentation, please document condition throughout progress notes and discharge summary. Thank You. CLINICAL INDICATORS - SIGNS / SYMPTOMS / LABS / RESULTS AND LOCATION IN EMR *LAB (EMR): 02/03 Iron: 28 02/05 25-Hydroxy Vitamin D Total: 17.2 *Food & Nutrition Services Assessment 02/02 (EMR): * Admit weight 100 lb * [place] Weight (1bs) 115 * Calculated BMI 17.6 * She did admit to not having a big appetite * Admitted that she has lot weight but couldnt provide a UBW or timeframe. * Nutrition Diagnosis: Malnutrition * Related to age, small appetite * Patient report of not eating very much, suspected patient meeting <75% of needs * Mild muscle wasting and fat loss present suggestive of moderate malnutrition in the context of acute illness RISK FACTORS / RESULTS AND LOCATION IN EMR *Food & Nutrition Services Assessment 02/02 (EMR): Report of not eating very much. TREATMENTS / RESULTS AND LOCATION IN EMR *Food & Nutrition Services Assessment 02/02 (EMR): * Recommend a liberalized Regular diet * Recommend Ensure Enlive once daily Moderate Malnutrition (in acute illness) Energy Intake: <75% of estimated energy requirement for > 7 days Weight Loss: 1-2%/1 week; 5%/ 1 month; 7.5%/3 months Other: mild body fat loss; mild muscle mass loss; mild fluid accumulation; Severe Malnutrition (in acute illness) Energy Intake: </= 50% of estimated energy requirement for >/= 5 days Weight Loss: >2%/1 week; >5%/1 month; >7.5%/3 months Other: moderate body fat loss; moderate muscle mass loss; moderate- severe fluid accumulation; measurably reduced napper grinder strength Moderate Malnutrition (in chronic illness) Energy Intake: <75% of estimated energy requirement for >/= 1 month Weight Loss: 5%/1 month; 7.5%/3 months; 10%/6 months; 20%/1 year Other: mild body fat loss; mild muscle mass loss; mild fluid accumulation Severe Malnutrition (in chronic illness) Energy Intake: </= 75% of estimated energy requirement for >/= 1 month Weight Loss: >5%/1 month; >7.5%/3 months; >10%/6 months; >20%/1 year Other: severe body fat loss; severe muscle mass loss; severe fluid accumulation; measurably reduced napper grinder strength Thank you, Ale CDS/Twister Frame Tender Signature: Ale Campbell RN, CDS Phone #: [phone] [email or web address] This is a permanent part of the Medical Record MTDD
[2020-02-06 14:22] VITALS: BMI 19.1
[2020-02-06] MEDS ORDERED: Communication Order-Pharmacy FS SCH (16:15)
--- NOTE | 2020-02-06 17:10 | PDOC.HOSPP ---
- Subjective Encounter Date: 02/06/20 Encounter Time: 11:00 Subjective: F/u: aortic stenosis, hip fracture Patient denies any pain when she ambulates. She denies any chest pain, dizziness or palpitations. Patient is very eager to go home. She states that she is too old for any surgery and she is not interested in surgery. She asked if not having her valve replaced would be fatal. I discussed that the there is a chance that she could pass away in a year without any surgery. She is still eager to do this at a later time however she was willing to consider doing a cardiac cath. I discussed this with cardiology. Dr. Lacy has discussed with [id number] and will proceed for cardiac cath tomorrow - Objective Vital Signs & Weight: Vital Signs (12 hours) Temp Pulse Resp BP BP BP BP 02/06/20 15:17 98.2 F 114 H 18 156/74 H 02/06/20 11:39 98.2 F 99 13 144/66 H 02/06/20 10:51 124/59 L 144/56 H 02/06/20 07:18 98.3 F 74 16 138/63 Pulse Ox 02/06/20 15:17 95 02/06/20 11:39 97 02/06/20 10:51 02/06/20 07:18 97 Weight Admit Weight 100 lb Weight 107 lb 11.2 oz I&O: 02/05/20 02/06/20 02/07/20 06:59 06:59 06:59 Intake Total 1080 1310 Output Total 150 800 Balance 930 510 Result Diagrams: 02/05/20 04:05 02/06/20 04:20 Hospitalist ROS - Review of Systems Constitutional: denies: fever, chills - Medication Medications: Active Medications Generic Name Dose Route Start Last Admin Trade Name Freq PRN Reason Stop Dose Admin Atorvastatin Calcium 40 mg 02/04/20 21:00 02/05/20 20:04 Atorvastatin Calcium 40 Mg Tab PO 40 mg HS CHARLES Administration Cyanocobalamin 1,000 mcg 02/05/20 09:00 02/06/20 08:55 Cyanocobalamin (Vitamin B-12) 1,000 Mcg Tab PO 1,000 mcg DAILY CHARLES Administration Ceftriaxone Sodium 1 gm/ 100 mls @ 200 mls/hr 02/03/20 10:00 02/06/20 08:59 Sodium Chloride IVPB 100 mls Q24HR CHARLES Administration Metoprolol Succinate 25 mg 02/06/20 09:00 02/06/20 08:55 Metoprolol Succinate Xl 25 Mg Tab PO 25 mg DAILY CHARLES Administration - Exam General Appearance: NAD, awake alert Eye: PERRL, anicteric sclera ENT: no oropharyngeal lesions Neck: supple, no JVD Heart: RRR, no gallops, no rubs Heart - other findings: Systolic murmur right intercostal space Respiratory: CTAB, no wheezes, no rales, no ronchi Gastrointestinal: soft, non-tender, non-distended, normal bowel sounds Extremities: no cyanosis, no clubbing, no edema Skin: normal turgor, no lesions, no rashes Neurological: cranial nerve grossly intact, normal sensation to touch, no weakness, no focal deficits Musculoskeletal: normal tone, normal strength, no muscle wasting Psychiatric: normal affect, normal behavior, A&O x 3, oriented to person Hosp A/P - Plan CT cervical spine: diffuse moderately severe degenerative changes CT brain 02/01: no acute findings Abdominal US; gallbladder wall thickening. Mild right hydronephrosis Carotid doppler: plaque left common carotid. No significant stenosis Hip X ray: greater trochanteric fracture, minimally displaced CT lower extremity: pathologic fracture of greater trochanter. 2.4 cm destructive lesion present in the trochanter itself. CT chest/abdomen/pelvis: osteolytic lesion causing pathologic fracture at base of greater trochanter of left proximal femur. Metastatic lesion vs plasmacytoma. Bone scan: sclerosis of the medial left clavicle. Subtle mixed osseous lesion inferior tip of right clavicle This is an 84 year old female who presented with syncopal episode/fall #Severe Aortic stenosis #Possible syncope - noted on ECHO. Cardiology is following. -We will keep n.p.o. for cardiac cath tomorrow. Patient is not interested in aortic valve replacement at this time. However after discussion with Dr. Lacy he recommends at least consideration of a TAVR #Hip fracture - greater trochanteric fracture noted on CT scan . Ortho consulted, no surgical intervention needed. CT chest/abdomen pelvis showed a lytic lesion. Bone scan shows no other pathologic lesions. 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 Continue 2L fluid restriction. Currently patient ias asymptomatic #Anemia - Hb 9.4. Iron studies show anemia of chronic disease - vitamin B12 borderline low 240, started supplementation Dispo: N.p.o. for cardiac cath tomorrow
[2020-02-06] MEDS: Atorvastatin Calcium 40 MG TAB PO SCH (20:54)
[2020-02-06 23:44] LABS: SARS-CoV-2 MS2 Positive; SARS-CoV-2 N Gene Negative; SARS-CoV-2 S Gene Negative; SARS-CoV-2 by NAA Not Detected (NotDetected); SARS-CoV-2 orf1ab Negative
[2020-02-07 04:58] LABS: #Basophils 0.1 thou/uL (0.0-0.2); #Eosinphils 0.1 thou/uL (0.0-0.7); #Lymphocytes 1.4 thou/uL (1.20-3.40); #Neutrophils 4.2 thou/uL (1.40-6.50); %Basophils 0.9 % (0.0-1.0); %Eosinophils 1.7 % (0.0-10.0); %Lymphocytes 20.5 % (21.0-51.0); %Monocytes 14.7 % (0.0-10.0); %Neutrophils 62.2 % (42.0-75.0); Hemoglobin 8.2 g/dL (12.0-16.0); Mean Corpuscular HGB CONC 34.4 g/dL (32.0-36.0); Mean Corpuscular Hemoglobin 32.5 pg (27.0-31.0); Mean Corpuscular Volume 94.7 fL (78.0-98.0); Platelet Count 173 thou/uL (130-400); RBC Distribution Width 11.3 % (11.5-14.5); Red Blood Cell (RBC) Count 2.51 mill/uL (4.20-5.40); White Blood Cell (WBC) Count 6.7 thou/uL (4.8-10.8)
[2020-02-07 05:22] LABS: Anion Gap 11 mmol/L (10-20); BUN (Urea Nitrogen) 8 mg/dL (9.8-20.1); Calc. Creatinine Clearance 49 mL/min (70-130); Calcium 8.6 mg/dL (7.8-10.44); Carbon Dioxide 28 mmol/L (23-31); Chloride 91 mmol/L (98-107); Glucose 87 mg/dL (83-110); Potassium 3.4 mmol/L (3.5-5.1); Sodium 127 mmol/L (136-145)
[2020-02-07] MEDS: Cyanocobalamin (Vitamin B-12) 1,000 MCG TAB PO SCH (05:57)
[2020-02-07] MEDS: Cholecalciferol (Vitamin D3) 400 UNITS TAB PO SCH (05:57)
[2020-02-07] MEDS ORDERED: Sodium Chloride 0.9% 1,000 ML IV SCH ×2 (06:00→08:19)
[2020-02-07] MEDS ORDERED: Heparin 10,000 UNITS/ 10 ML VIAL ONE (06:38)
[2020-02-07] MEDS ORDERED: Midazolam HCl 2 mg/2 ml Vial ONE (07:07)
[2020-02-07] MEDS ORDERED: Fentanyl 100 MCG/2 ML VIAL ONE (07:08)
[2020-02-07 07:15] LABS: Kappa Lambda Light Chain Ratio 1.19 (0.26-1.65); Kappa Light Chains 22.9 mg/L (3.3-19.4); Lambda Light Chain 19.2 mg/L (5.7-26.3)
[2020-02-07] MEDS ORDERED: Lidocaine 1% (PF) 30 ML VIAL ONE (07:15)
[2020-02-07] MEDS ORDERED: Sodium Chloride 0.9% 200 ML IV PRN (08:16)
[2020-02-07] MEDS ORDERED: Nitroglycerin 0.4 MG TAB (25 Tab Bottle) SL PRN (08:16)
[2020-02-07] MEDS ORDERED: Acetaminophen/Codeine 30-300mg Tablet PO PRN ×2 (08:16)
[2020-02-07] MEDS ORDERED: Protamine Sulfate 50 MG/5 ML VIAL ONE (08:18)
[2020-02-07] MEDS ORDERED: Potassium Chloride 20 MEQ TAB PO SCH (08:45)
[2020-02-07 09:56] LABS: Iron 25 ug/dL (50-170); Iron Binding Capacity, Total 184 mcg/dL (265-497)
[2020-02-07] MEDS: cefTRIAXone\\ROCEPHIN 1 GM in Sodium Chloride 0.9% 100 ML IVPB SCH (10:09)
[2020-02-07] MEDS ORDERED: Iopamidol 370 76% 50 ML VIAL FS ONE ×2 (10:39→14:13)
[2020-02-07] MEDS ORDERED: Iopamidol 370 76% 100 ML VIAL ONE ×2 (10:39→14:13)
--- NOTE | 2020-02-07 11:12 | CON ---
DATE OF CONSULTATION: HISTORY OF PRESENT ILLNESS: This is an 84-year-old female, followed along by Dr. Lacy for aortic valve stenosis. Due to 2 episodes of perhaps syncope or near-syncope in the last 2 days, her daughter brought her to the emergency room. Workup here was suggestive of a pathologic fracture in her left hip, which may have been totally unrelated to any of her recent falls, and a bone biopsy of this was negative for malignancy. She had a cardiac echo, showing aortic valve stenosis and regurgitation with peak and mean gradients of 60 and 32. Left ventricular function was normal. She had a CT of the chest, abdomen, and pelvis, and this was notable for a fairly clean ascending aorta, calcified coronaries and aortic valve. She did have calcified infrarenal abdominal aorta, but her iliacs appear to be fairly free of disease. Her left common carotid artery had calcification and her right common carotid artery appeared to be quite tortuous. Carotid ultrasound was negative for any significant internal carotid disease. Cardiac catheterization today, most notably in regard to her coronary showed an ostial stenosis of the right coronary artery of about 70%. She had a circumflex lesion of probably about 70% to 80%, and her LAD was generally free of disease except distally, there may have been about 60% to 70% stenosis. PAST MEDICAL HISTORY: The patient currently is treated for hypertension and dyslipidemia. PAST SURGICAL HISTORY: Includes skin cancer being removed from her left thigh, but otherwise nothing. SOCIAL HISTORY: She lives next door to her daughter. MEDICATIONS: At home include; 1. Metoprolol 50 a day. 2. Losartan and HCTZ 100/25 a day. 3. Atorvastatin 40 a day. 4. Vitamin D daily. LABORATORY VALUES: Of note, her hemoglobin was in the 8 to 9 range, which was slightly decreased from prior studies. Her creatinine was normal. Her iron level was low at 25 and her iron binding capacity was also diminished. PHYSICAL EXAMINATION: GENERAL: She is a frail-appearing lady, at 5 feet and 307 pounds. NECK: Reveals bilateral radiated murmur. CARDIAC: Regular rate and rhythm with harsh systolic murmur across the precordium, loudest at the left lower sternal border. Ribs are prominent bilaterally. ABDOMEN: Firm and nontender. EXTREMITIES: She has a dressing on the right groin and the left subclavian area, and has a palpable left femoral pulse and palpable popliteal pulses bilaterally and I do not appreciate any pedal pulses. Options for this lady at this time include possibly aortic valve replacement with a coronary artery bypass grafting to the right and OM versus a primary TAVR, which may not be a bad choice in this lady, given her age and frailty. It appears that she would probably end up with a 19 valve based on measurements in regard to her echo and catheterization and CT if she had an open repair and might benefit from TAVR in this regard as well. However, in any event, the patient currently has no interest in pursuing any intervention and has discussed this with other physicians as well as myself. I have discussed it with her daughter, who confirms that the patient has refused any intervention, and so at this time, I think getting an opinion on TAVR is appropriate, but may take some more time for the patient to accept this less invasive approach as an option. Job ID: [id number]
[2020-02-07 13:40] LABS: A/G Ratio 1.2 (0.7-1.7); Albumin 3.1 g/dL (2.9-4.4); Alpha 1 0.3 g/dL (0.0-0.4); Alpha 2 0.6 g/dL (0.4-1.0); Beta 0.7 g/dL (0.7-1.3); Gamma 1.1 g/dL (0.4-1.8); Globulin, Total 2.6 g/dL (2.2-3.9); M-Spike Not Observed g/dL (Not Observed)
--- NOTE | 2020-02-07 18:22 | PDOC.HOSPP ---
- Subjective Encounter Date: 02/07/20 Encounter Time: 08:00 Subjective: F/u: aortic stenosis The patient is doing well. She denies SOB, dizziness or lightheadedness. No chest pain. SHe had Cath which showed 3 vessel CAD. The patient is not interested in surgery, will consider doing further surgery in a few weeks GI has been consulted by cardiology due to hemoglobin drip The patient was very anxious to sit up and eat after she had been laying flat for four hours - Objective Vital Signs & Weight: Vital Signs (12 hours) Temp Pulse Resp BP BP Pulse Ox 02/07/20 15:53 98.6 F 84 16 144/65 H 99 02/07/20 11:53 98.0 F 82 16 163/73 H 98 02/07/20 08:50 97.5 F L 67 17 159/71 H 93 L Weight Admit Weight 100 lb Weight 107 lb 11.2 oz I&O: 02/06/20 02/07/20 02/08/20 06:59 06:59 06:59 Intake Total 1310 1430 1720 Output Total 800 550 Balance 510 1430 1170 Result Diagrams: 02/07/20 04:36 02/07/20 04:36 Hospitalist ROS - Review of Systems Constitutional: denies: fever, chills - Medication Medications: Active Medications Generic Name Dose Route Start Last Admin Trade Name Aisha PRN Reason Stop Dose Admin Cholecalciferol 800 units 02/07/20 09:00 02/07/20 05:57 Cholecalciferol (Vitamin D3) 400 Units Tab PO 800 units DAILY CHARLES Administration Cyanocobalamin 1,000 mcg 02/05/20 09:00 02/07/20 05:57 Cyanocobalamin (Vitamin B-12) 1,000 Mcg Tab PO 1,000 mcg DAILY CHARLES Administration Ceftriaxone Sodium 1 gm/ 100 mls @ 200 mls/hr 02/03/20 10:00 02/07/20 10:09 Sodium Chloride IVPB 100 mls Q24HR CHARLES Administration Metoprolol Succinate 25 mg 02/06/20 09:00 02/07/20 05:57 Metoprolol Succinate Xl 25 Mg Tab PO 25 mg DAILY CHARLES Administration Pantoprazole Sodium 40 mg 02/07/20 09:00 02/07/20 05:57 Pantoprazole 40 Mg Tab PO 40 mg DAILY CHARLES Administration - Exam General Appearance: NAD, awake alert Eye: PERRL, anicteric sclera ENT: normocephalic atraumatic, no oropharyngeal lesions Neck: no JVD Heart - other findings: systolic murmur Respiratory: CTAB, no wheezes, no rales, no ronchi Gastrointestinal: soft, non-tender, non-distended, no bruit Extremities: no cyanosis, no clubbing, no edema Skin: normal turgor, no lesions, no rashes Neurological: cranial nerve grossly intact, normal sensation to touch, no weakness Musculoskeletal: normal tone, normal strength, no muscle wasting Hosp A/P - Plan CT cervical spine: diffuse moderately severe degenerative changes CT brain 02/01: no acute findings Abdominal US; gallbladder wall thickening. Mild right hydronephrosis Carotid doppler: plaque left common carotid. No significant stenosis Hip X ray: greater trochanteric fracture, minimally displaced CT lower extremity: pathologic fracture of greater trochanter. 2.4 cm destructive lesion present in the trochanter itself. CT chest/abdomen/pelvis: osteolytic lesion causing pathologic fracture at base of greater trochanter of left proximal femur. Metastatic lesion vs plasmacytoma. Bone scan: sclerosis of the medial left clavicle. Subtle mixed osseous lesion inferior tip of right clavicle This is an 84 year old female who presented with syncopal episode/fall #Severe Aortic stenosis #Possible syncope - noted on ECHO. Cardiology is following. S/p cardiac cath, found to have 3 vessel disease. Does not want CABG - she may be candidate for a TAVR, but patient is not interested at this time #Anemia - Hb 8.2. Iron studies show anemia of chronic disease - vitamin B12 borderline low 240, started supplementation - GI was consulted for further workup prior to any stent placement due to gradually downtrending hemoglobin #Hip fracture - greater trochanteric fracture noted on CT scan . Ortho consulted, no surgical intervention needed. CT chest/abdomen pelvis showed a lytic lesion. Bone scan shows no other pathologic lesions. 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 Continue 2L fluid restriction. Currently patient ias asymptomatic Dispo: pending GI consult
[2020-02-07] MEDS: Atorvastatin Calcium 40 MG TAB PO SCH (20:12)
--- NOTE | 2020-02-07 20:47 | PRG ---
DATE OF SERVICE: 02/07/2020 SUBJECTIVE: Ms. Patrick has had no nausea or vomiting or abdominal pain or diarrhea or constipation or visible blood in the stool. She underwent heart catheterization today that showed stenosis of 3 vessels. She has severe aortic stenosis. She has had syncope related to the aortic stenosis. PHYSICAL EXAMINATION: VITAL SIGNS: Temperature 98.6, pulse 84, and blood pressure 144/65. GENERAL: She is in no acute distress. She is alert and oriented x3. LUNGS: Clear to auscultation bilaterally. HEART: Regular rate and rhythm without murmur. ABDOMEN: Soft, nontender, and nondistended. Bowel sounds are present. EXTREMITIES: No lower extremity edema. LABORATORY DATA: White blood cell count 6.7, hemoglobin 8.2, and platelets 173. INR 1.1. Iron 25, TIBC 184, and ferritin 468. IMPRESSION: Anemia. Her hemoglobin is stable at 8.2 over the last few days, however, back in December, hemoglobin baseline was 11.3. She has not had overt bleeding. Her iron studies are most consistent with anemia of chronic disease, however, the drop of 3 g over the last month could indicate that she has secondary more acute process in addition to her chronic anemia. It is anticipated that she will need a TAVR procedure in addition to multiple coronary stents. If this is performed, then she will likely require dual anti-platelet therapy and therefore Cardiology is requested that we evaluate her GI tract for potential bleeding source. Unfortunately, I am not able to get too far into the conversation with the patient as she just states that she wants to go home and come back and consider doing the other procedures at a later date. I am not sure that she has full insight into her condition as the severe aortic stenosis with syncope carries significant risks over the next year. RECOMMENDATIONS: 1. Upper and lower endoscopy could be performed at a later date if she is willing to proceed. 2. Other option will be to let her follow through with TAVR and stents if she chooses to do so and then potentially deal with bleeding complications later if they occur. In the meantime, she can continue with proton-pump inhibitor. We will re-evaluate tomorrow. I was unable to reach her daughter by phone this evening. Job ID: [id number]
[2020-02-08 04:43] LABS: #Eosinphils 0.2 thou/uL (0.0-0.7); #Lymphocytes 1.2 thou/uL (1.20-3.40); #Monocytes 1.1 thou/uL (0.11-0.59); #Neutrophils 4.9 thou/uL (1.40-6.50); %Basophils 0.3 % (0.0-1.0); %Eosinophils 2.2 % (0.0-10.0); %Lymphocytes 15.9 % (21.0-51.0); %Monocytes 14.3 % (0.0-10.0); %Neutrophils 67.3 % (42.0-75.0); Mean Corpuscular Hemoglobin 32.6 pg (27.0-31.0); Mean Platelet Volume 6.4 fL (7.4-10.4); Platelet Count 176 thou/uL (130-400); RBC Distribution Width 11.5 % (11.5-14.5); Red Blood Cell (RBC) Count 2.47 mill/uL (4.20-5.40); White Blood Cell (WBC) Count 7.3 thou/uL (4.8-10.8)
[2020-02-08 04:57] LABS: Anion Gap 10 mmol/L (10-20); BUN (Urea Nitrogen) 8 mg/dL (9.8-20.1); Calc. Creatinine Clearance 45 mL/min (70-130); Calcium 8.6 mg/dL (7.8-10.44); Carbon Dioxide 28 mmol/L (23-31); Chloride 93 mmol/L (98-107); Glucose 96 mg/dL (83-110); Potassium 4.3 mmol/L (3.5-5.1); Sodium 127 mmol/L (136-145)
[2020-02-08] MEDS: Cholecalciferol (Vitamin D3) 400 UNITS TAB PO SCH (08:39)
[2020-02-08] MEDS: Cyanocobalamin (Vitamin B-12) 1,000 MCG TAB PO SCH (08:40)
[2020-02-08] MEDS: cefTRIAXone\\ROCEPHIN 1 GM in Sodium Chloride 0.9% 100 ML IVPB SCH (09:55)
[2020-02-08] MEDS ORDERED: cefTRIAXone\\ROCEPHIN 1 GM VIAL ONE (10:05)
--- NOTE | 2020-02-08 16:42 | PDOC.HOSPP ---
- Subjective Encounter Date: 02/08/20 Encounter Time: 15:00 Subjective: F/u: aortic stenosis The patient states she feels fine. She denies syncope. She denies chest pain. She ambulated without issues. The patient wants to go home, but states she has no ride until Wednesday Discussed that cardiology wants to do a GI workup to see if she is bleeding. THe patient states she is not interested in any procedures. I discussed with her daughter Sherice Galindo and with the patient about risk of sudden if cardiac workup not completed. The patient stated that it didn't matter and she would go home and stay with her daughter in case she were to pass out and accepted risk of . She states she will get her valve fixed in the next month or so . Sherice Galindo, the patient's daughter states that she would not able to live with her but she can check on her periodically. The patient's daughter feels patient has anxiety about surgeries at her age and whether she will recover. She plans to discuss with other family members and try to convince the patient otherwise, but if not they will not be able to come until Wednesday but daughter does not drive, and two sons live in [place] and [place] - Objective Vital Signs & Weight: Vital Signs (12 hours) Temp Pulse Resp BP BP BP Pulse Ox 02/08/20 15:49 98.1 F 101 H 18 120/64 95 02/08/20 11:20 139/71 128/64 02/08/20 11:06 98.0 F 91 16 124/65 95 02/08/20 08:00 97.6 F 86 16 146/78 H 97 02/08/20 07:53 95 Weight Admit Weight 100 lb Weight 107 lb 11.2 oz I&O: 02/07/20 02/08/20 02/09/20 06:59 06:59 06:59 Intake Total 1430 1960 Output Total 550 Balance 1430 1410 Result Diagrams: 02/08/20 04:22 02/08/20 04:22 Hospitalist ROS - Review of Systems Constitutional: denies: fever, chills - Medication Medications: Active Medications Generic Name Dose Route Start Last Admin Trade Name Freq PRN Reason Stop Dose Admin Atorvastatin Calcium 80 mg 02/07/20 21:00 02/07/20 20:12 Atorvastatin Calcium 40 Mg Tab PO 80 mg HS CHARLES Administration Cholecalciferol 800 units 02/07/20 09:00 02/08/20 08:39 Cholecalciferol (Vitamin D3) 400 Units Tab PO 800 units DAILY CHARLES Administration Cyanocobalamin 1,000 mcg 02/05/20 09:00 02/08/20 08:40 Cyanocobalamin (Vitamin B-12) 1,000 Mcg Tab PO 1,000 mcg DAILY CHARLES Administration Ceftriaxone Sodium 1 gm/ 100 mls @ 200 mls/hr 02/03/20 10:00 02/08/20 09:55 Sodium Chloride IVPB 100 mls Q24HR CHARLES Administration Metoprolol Succinate 25 mg 02/06/20 09:00 02/08/20 08:40 Metoprolol Succinate Xl 25 Mg Tab PO 25 mg DAILY CHARLES Administration Pantoprazole Sodium 40 mg 02/07/20 09:00 02/08/20 08:39 Pantoprazole 40 Mg Tab PO 40 mg DAILY CHARLES Administration - Exam General Appearance: NAD, awake alert Eye: PERRL, anicteric sclera ENT: normocephalic atraumatic, no oropharyngeal lesions Neck: no JVD Heart: RRR, no gallops, no rubs Heart - other findings: loud systolic murmur Respiratory: CTAB, no wheezes, no rales, no ronchi Gastrointestinal: soft, non-tender, non-distended, normal bowel sounds Extremities: no cyanosis, no clubbing, no edema Skin: normal turgor, no lesions, no rashes Neurological: cranial nerve grossly intact, normal sensation to touch, no weakness Musculoskeletal: normal tone, normal strength, no muscle wasting Hosp A/P - Plan CT cervical spine: diffuse moderately severe degenerative changes CT brain 02/01: no acute findings Abdominal US; gallbladder wall thickening. Mild right hydronephrosis Carotid doppler: plaque left common carotid. No significant stenosis Hip X ray: greater trochanteric fracture, minimally displaced CT lower extremity: pathologic fracture of greater trochanter. 2.4 cm destructive lesion present in the trochanter itself. CT chest/abdomen/pelvis: osteolytic lesion causing pathologic fracture at base of greater trochanter of left proximal femur. Metastatic lesion vs plasmacytoma. Bone scan: sclerosis of the medial left clavicle. Subtle mixed osseous lesion inferior tip of right clavicle This is an 84 year old female who presented with syncopal episode/fall #Severe Aortic stenosis #Possible syncope - noted on ECHO. Cardiology is following. S/p cardiac cath, found to have 3 vessel disease. Does not want CABG - she may be candidate for a TAVR, but patient is not interested at this time. Needs GI workup prior to any cardiac workup #Anemia - Hb 8.0. Iron studies show anemia of chronic disease - vitamin B12 borderline low 240, started supplementation - GI was consulted, patient is refusing endoscopy or colonoscopy at this time #Hip fracture - greater trochanteric fracture noted on CT scan . Ortho consulted, no surgical intervention needed. CT chest/abdomen pelvis showed a lytic lesion. Bone scan shows no other pathologic lesions. 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 Continue 2L fluid restriction. Currently patient ias asymptomatic Dispo: pending GI consult
[2020-02-08] MEDS: Atorvastatin Calcium 40 MG TAB PO SCH (20:54)
--- NOTE | 2020-02-08 22:29 | PRG ---
DATE OF SERVICE: 02/08/2020 REASON FOR CONSULTATION: Anemia. SUBJECTIVE: Today, the patient states that she was doing well with no acute problems or complaints. She did have one bowel movement earlier today with no observed blood. Otherwise, she denies any nausea, vomiting, fevers, chills, hematemesis, melena, or hematochezia. OBJECTIVE: VITAL SIGNS: Temperature 98.6, pulse 89, blood pressure 133/63, respiratory rate 20, saturating 97% on room air. GENERAL: The patient was lying in bed, in no acute distress. Alert and oriented x3. CARDIOVASCULAR: Regular rate and rhythm, but with a 4/6 systolic murmur best heard at the right upper sternal border consistent with aortic stenosis. RESPIRATORY: Clear to auscultation bilaterally. ABDOMEN: Normoactive bowel sounds. Soft, nontender, nondistended. EXTREMITIES: No cyanosis, clubbing, or edema. LABORATORY DATA: CBC with a white blood cell count of 7.3, hemoglobin 8.0, hematocrit 23.7, platelets 176. Chemistry with a sodium of 127, potassium 4.3, chloride 93, CO2 of 28, BUN 8, creatinine 0.71, glucose 96. IMAGING DATA: No current GI imaging is available for review. ASSESSMENT AND PLAN: The patient is an 84-year-old female with past medical history including hyperlipidemia, hypertension, skin cancer and aortic stenosis, now with coronary artery disease on cardiac catheterization and anemia most consistent with anemia of chronic disease. Anemia of chronic disease. The patient initially presented to the hospital after sustaining a hip fracture after experiencing a syncopal episode at home that was witnessed by the patient's daughter. On arrival to the [facility] ER, she was noted to have decreased H and H consistent with significant anemia that was felt that it could be potentially contributing to her syncopal type events. Further evaluation of her anemia yielded a normal MCV, low RDW, low iron, normal ferritin and low TIBC, all consistent more with anemia of chronic disease rather than chronic GI blood loss generating iron deficiency anemia. However, during the course of this hospitalization, the patient did undergo cardiac evaluation for her syncope and was noted to have significant coronary artery disease. She currently has no evidence of active GI bleeding and upon conferring with the patient about possible additional workup related for this particular anemia including EGD, colonoscopy, or both. She is currently reluctant to proceed with either modality at this time. RECOMMENDATIONS: 1. Would continue to trend her H and H and transfuse as necessary to maintain an H and H of /. 2. Continue to monitor clinically for signs of active GI bleeding. 3. Could consider an upper and lower endoscopy for further evaluation of this anemia, although with being more of an anemia of chronic disease type picture, upper and lower endoscopy is likely to be negative for anemia etiology. However, the patient is currently refusing any invasive therapies at this time including EGD and colonoscopy. We will continue to hold on any further evaluation at this time. We will sign off at this time. Please call with any additional questions. Job ID: [id number]
[2020-02-09 04:21] LABS: #Eosinphils 0.1 thou/uL (0.0-0.7); #Lymphocytes 1.3 thou/uL (1.20-3.40); #Monocytes 0.9 thou/uL (0.11-0.59); #Neutrophils 4.3 thou/uL (1.40-6.50); %Basophils 0.7 % (0.0-1.0); %Eosinophils 2.1 % (0.0-10.0); %Lymphocytes 19.5 % (21.0-51.0); %Monocytes 13.9 % (0.0-10.0); %Neutrophils 63.7 % (42.0-75.0); Hemoglobin 7.2 g/dL (12.0-16.0); Mean Corpuscular HGB CONC 34.2 g/dL (32.0-36.0); Mean Corpuscular Hemoglobin 32.4 pg (27.0-31.0); Mean Corpuscular Volume 94.8 fL (78.0-98.0); Mean Platelet Volume 6.2 fL (7.4-10.4); Platelet Count 153 thou/uL (130-400); RBC Distribution Width 11.5 % (11.5-14.5); Red Blood Cell (RBC) Count 2.23 mill/uL (4.20-5.40); White Blood Cell (WBC) Count 6.8 thou/uL (4.8-10.8)
[2020-02-09 04:42] LABS: Anion Gap 11 mmol/L (10-20); BUN (Urea Nitrogen) 9 mg/dL (9.8-20.1); Calc. Creatinine Clearance 48 mL/min (70-130); Calcium 8.2 mg/dL (7.8-10.44); Carbon Dioxide 27 mmol/L (23-31); Chloride 92 mmol/L (98-107); Glucose 95 mg/dL (83-110); Sodium 126 mmol/L (136-145)
[2020-02-09] MEDS: Cholecalciferol (Vitamin D3) 400 UNITS TAB PO SCH (08:36)
[2020-02-09] MEDS: Cyanocobalamin (Vitamin B-12) 1,000 MCG TAB PO SCH (08:36)
[2020-02-09] MEDS: cefTRIAXone\\ROCEPHIN 1 GM in Sodium Chloride 0.9% 100 ML IVPB SCH (10:30)
--- NOTE | 2020-02-09 11:57 | PDOC.HOSPP ---
- Subjective Encounter Date: 02/09/20 Encounter Time: 10:00 Subjective: F/u: aortic stenosis, CAD, hip fracture The patient states she feels fine. She no longer has hip pain. She denies dizziness, lightheadedness, shortness of breath, chest pain or palpitations on exertion. She still wants to go home. She tells me her son will pick her up at 8:00 am tomorrow Anemia - patient feels no dizziness or lightheadedness. She has not had blood in her stools. She is refusing blood transfusion - Objective Vital Signs & Weight: Vital Signs (12 hours) Temp Pulse Pulse Pulse Resp BP BP 02/09/20 10:11 89 88 163/71 H 137/66 02/09/20 08:00 98 F 106 H 17 02/09/20 04:00 97.8 F 85 23 H 02/09/20 00:48 BP Pulse Ox 02/09/20 10:11 02/09/20 08:00 123/57 L 94 L 02/09/20 04:00 131/61 100 02/09/20 00:48 97 Weight Admit Weight 100 lb Weight 107 lb 11.2 oz I&O: 02/08/20 02/09/20 02/10/20 06:59 06:59 06:59 Intake Total 1960 1020 Output Total 550 Balance 1410 1020 Result Diagrams: 02/09/20 04:09 02/09/20 04:09 Hospitalist ROS - Review of Systems Constitutional: denies: fever, chills - Medication Medications: Active Medications Generic Name Dose Route Start Last Admin Trade Name Aisha PRN Reason Stop Dose Admin Atorvastatin Calcium 80 mg 02/07/20 21:00 02/08/20 20:54 Atorvastatin Calcium 40 Mg Tab PO 80 mg HS CHARLES Administration Cholecalciferol 800 units 02/07/20 09:00 02/09/20 08:36 Cholecalciferol (Vitamin D3) 400 Units Tab PO 800 units DAILY CHALRES Administration Cyanocobalamin 1,000 mcg 02/05/20 09:00 02/09/20 08:36 Cyanocobalamin (Vitamin B-12) 1,000 Mcg Tab PO 1,000 mcg DAILY CHARLES Administration Ceftriaxone Sodium 1 gm/ 100 mls @ 200 mls/hr 02/03/20 10:00 02/09/20 10:30 Sodium Chloride IVPB 100 mls Q24HR CHARLES Administration Metoprolol Succinate 25 mg 02/06/20 09:00 02/09/20 08:36 Metoprolol Succinate Xl 25 Mg Tab PO 25 mg DAILY CHARLES Administration Pantoprazole Sodium 40 mg 02/07/20 09:00 02/09/20 08:36 Pantoprazole 40 Mg Tab PO 40 mg DAILY CHARLES Administration - Exam General Appearance: NAD, awake alert Eye: PERRL, anicteric sclera ENT: normocephalic atraumatic, no oropharyngeal lesions Neck: no JVD Heart - other findings: systolic murmur right intercostal space Respiratory: CTAB, no wheezes, no rales, no ronchi Gastrointestinal: soft, non-tender, non-distended, normal bowel sounds Extremities: no cyanosis, no clubbing, no edema Extremities - other findings: 5/5 strength in her extremities Skin: normal turgor, no lesions, no rashes Neurological: cranial nerve grossly intact, normal sensation to touch, no focal deficits, no new deficit Hosp A/P - Plan CT cervical spine: diffuse moderately severe degenerative changes CT brain 02/01: no acute findings Abdominal US; gallbladder wall thickening. Mild right hydronephrosis Carotid doppler: plaque left common carotid. No significant stenosis Hip X ray: greater trochanteric fracture, minimally displaced CT lower extremity: pathologic fracture of greater trochanter. 2.4 cm destructive lesion present in the trochanter itself. CT chest/abdomen/pelvis: osteolytic lesion causing pathologic fracture at base of greater trochanter of left proximal femur. Metastatic lesion vs plasmacytoma. Bone scan: sclerosis of the medial left clavicle. Subtle mixed osseous lesion inferior tip of right clavicle This is an 84 year old female who presented with syncopal episode/fall #Severe Aortic stenosis #Possible syncope - noted on ECHO. Cardiology is following. S/p cardiac cath, found to have 3 vessel disease. Does not want CABG - she may be candidate for a TAVR, but patient is not interested at this time. Needs GI workup prior to any cardiac workup, but she is refusing that as well - patient wants to go home tomorrow and she will follow up with cardiology as an outpatient #Anemia - Hb down to 7.2. Iron studies show anemia of chronic disease. - vitamin B12 borderline low 240, started supplementation - she refuses blood transfusion. GI was consulted and she refused endoscopy or colonoscopy #Hip fracture - greater trochanteric fracture noted on CT scan . Ortho consulted, no surgical intervention needed. CT chest/abdomen pelvis showed a lytic lesion. Bone scan shows no other pathologic lesions. 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 Continue 2L fluid restriction. The patient is asymptomatic and this is chronic for her Dispo: d/c in am tomorrow
--- NOTE | 2020-02-09 15:56 | PDOC.EVN ---
Event Note - Event Note Event Note: Informed by palliative care that patient is interested in hospice and will be admitted to hospice at 2:00 pm tomorrow in her home
[2020-02-09] MEDS: Atorvastatin Calcium 40 MG TAB PO SCH (20:21)
[2020-02-10 04:42] LABS: #Eosinphils 0.2 thou/uL (0.0-0.7); #Monocytes 0.8 thou/uL (0.11-0.59); #Neutrophils 3.5 thou/uL (1.40-6.50); %Basophils 0.7 % (0.0-1.0); %Eosinophils 2.9 % (0.0-10.0); %Lymphocytes 18.9 % (21.0-51.0); %Monocytes 14.7 % (0.0-10.0); %Neutrophils 62.8 % (42.0-75.0); Hemoglobin 7.2 g/dL (12.0-16.0); Mean Corpuscular HGB CONC 34.5 g/dL (32.0-36.0); Mean Corpuscular Hemoglobin 32.8 pg (27.0-31.0); Mean Platelet Volume 6.6 fL (7.4-10.4); Platelet Count 169 thou/uL (130-400); RBC Distribution Width 11.3 % (11.5-14.5); Red Blood Cell (RBC) Count 2.18 mill/uL (4.20-5.40); White Blood Cell (WBC) Count 5.5 thou/uL (4.8-10.8)
[2020-02-10 04:55] LABS: Anion Gap 12 mmol/L (10-20); BUN (Urea Nitrogen) 9 mg/dL (9.8-20.1); Calc. Creatinine Clearance 46 mL/min (70-130); Calcium 8.1 mg/dL (7.8-10.44); Carbon Dioxide 28 mmol/L (23-31); Chloride 91 mmol/L (98-107); Glucose 90 mg/dL (83-110); Potassium 3.9 mmol/L (3.5-5.1); Sodium 127 mmol/L (136-145)
[2020-02-10] MEDS: Cyanocobalamin (Vitamin B-12) 1,000 MCG TAB PO SCH (09:20)
[2020-02-10] MEDS: Cholecalciferol (Vitamin D3) 400 UNITS TAB PO SCH (09:20)
[2020-02-10] MEDS: cefTRIAXone\\ROCEPHIN 1 GM in Sodium Chloride 0.9% 100 ML IVPB SCH (09:23)
[2020-02-10 11:49] VITALS: BP 127/65; TEMP 98.7
--- NOTE | 2020-02-10 12:41 | DIS ---
DATE OF ADMISSION: 02/02/2020 DATE OF DISCHARGE: 02/10/2020 DISCHARGE DIAGNOSES: 1. Severe aortic stenosis. 2. Syncopal episode secondary to severe aortic stenosis. 3. Acute on chronic anemia with acute blood loss component in addition to iron deficiency. 4. Left proximal femur fracture, status post fall, nonoperative management. 5. 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 6. Left proximal femur lesion 2.4 cm with negative bone biopsy. CONSULTATIONS: 1. Dr. Lacy with Cardiology Service. 2. Orthopedic Surgery Service. 3. Dr. Lawrence and Dr. Franco with GI Service. PERTINENT LABORATORY AND X-RAY FINDINGS: Sodium ranged between 123 to 127. Lactic acid level 1.3. Serum osmolarity 252. Serum iron level ranged between 25 to 28, ferritin 469, total CK 560. BNP 399. Total cholesterol 192, triglyceride 62, HDL 71, and LDL 109. Vitamin B12 level 240. Folate level 11.40. CBC showed a hemoglobin ranging between 7.2 to 9.4, MCV 95. Reticulocyte count 1.7. COVID-19 PCR not detected on 02/06/2020. Urine culture dated 02/02/2020, showed greater than 100,000 colonies of Klebsiella oxytoca, pansensitive. Carotid Doppler study dated 02/02/2020, showed no hemodynamically significant stenosis. Cardiac catheterization dated 02/07/2020, showed three-vessel coronary artery disease. Severe aortic stenosis. Ejection fraction of 50%. Abdominal ultrasound dated 02/02/2020, showed gallbladder wall thickening without cholelithiasis. Two views of the left hip dated 02/03/2020, showed greater trochanteric fracture with minimal displacement. CT of the left lower extremity dated 02/05/2020, showed osteolytic lesion causing pathologic fracture at the base of greater trochanter of the left proximal femur. 2D transthoracic echocardiogram dated 02/03/2020, showed ejection fraction of 55% to 60%. Diastolic dysfunction noted. Moderate mitral regurgitation. Severe aortic stenosis. Moderate aortic regurgitation. Bone biopsy pathology dated 02/05/2020, showed no evidence for malignancy. HOSPITAL COURSE: The patient was initially evaluated, status post syncope and fall. The patient underwent an extensive evaluation including multiple imaging studies including CT of the brain showing no acute intracranial process. The patient did undergo evaluation of the left hip due to persistent pain and status post fall, showing a nondisplaced proximal left femur fracture with questionable osteolytic lesion. The patient underwent evaluation and eventual bone biopsy of the left proximal femur showing negative pathology. Orthopedic Surgery evaluation recommended conservative management due to the nondisplaced nature of the fracture. The patient was ambulatory with physical therapy up to 380 feet requiring standby assistance. The patient also underwent evaluation due to the syncopal episode including 2D transthoracic echocardiogram showing severe aortic stenosis with preserved ejection fraction. Cardiology did recommend a consideration for TAVR, however, the patient refused to proceed with this intervention and therapy. The patient did undergo cardiac catheterization showing three-vessel coronary artery disease, however, did not want to pursue further management to include coronary artery bypass grafting. The patient was also evaluated due to acute anemia, undergoing consultation with GI Service. The patient did not wish to pursue EGD or colonoscopy exam and refused blood transfusions during the hospital course. The patient did receive IV antibiotics for Klebsiella urinary tract infection and completed IV antibiotic therapy prior to discharge. The patient also was evaluated by the Hospice Service as the patient with severe aortic stenosis as well as recent mechanical fall. The patient was deemed an appropriate candidate for ongoing home hospice services and will transition to home hospice on 02/10/2020. I have examined the patient at the time of discharge and discussed followup instructions. The patient verbalizes understanding and in agreement and ready for discharge with home hospice on 02/10/2020. DISCHARGE MEDICATIONS: 1. Lipitor 40 mg p.o. daily. 2. Losartan/hydrochlorothiazide 100/25 mg one tablet p.o. daily. 3. Metoprolol succinate 25 mg p.o. daily. 4. Vitamin D2 of 1000 units p.o. daily. FOLLOWUP: The patient may follow up with her primary care provider, Dr. Leno Jackson. The patient may follow up with [facility] at home after discharge. CONDITION ON DISCHARGE: Fair. ACTIVITY: Ad beena. Rolling walker with standby assistance. DIET: Regular. CODE STATUS: Do not attempt resuscitation. DISPOSITION: Discharged home with [facility] on 02/10/2020. TIME SPENT: Total time preparing and coordinating discharge is 35 minutes. Job ID: [id number]
--- NOTE | 2020-02-13 08:13 | PQF ---
CLINICAL DOCUMENTATION CLARIFICATION FORM: Dear : Ramón Baker Date / Time: 02/13/2020811 Please exercise your independent, professional judgment in responding to the clarification form. Clinical indicators are provided on the bottom of this form for your review Please check appropriate box(es): Type of fracture: [ x ] Traumatic fracture [ ] Pathologic fracture [ ] Other diagnosis, please specify [ ] Unable to determine Physician Signature: Date/Time: For continuity of documentation, please document condition throughout progress notes and discharge summary. Thank You To be completed by CDI/Coding staff for physician review: Present Clinical Indicators - Signs / Symptoms / Labs Results and Location in Medical Record [X] Hip X-ray : Evidence of greater trochanteric fracture Imaging Dr Bains 02/02 [X] Path report: Negative for malignancy Bone Biopsy path report [X] presented to the ED after having syncopal episode H&P p1 02/01 [facility] PA-C [X] She completely blacked out and fell backwards. Complains mainly of left hip pain H&P p1 02/01 [facility] PA-C [X] Fx of greater trochanter of left femus, possibly pathologic H&P p4 02/01 [facility] PA-C [X] Tip of the troch on the left fx could be pathologic fracture Ortho consult yanni Hilliard 02/03 [X] Left proximal femur s/p Fall Ds p1 02/09 Dr Baker [X] Hip Xray: Severe bone demineralization with prominet vascular calcification Hip Xray 02/02 Present Risk Factors Results and Location in Medical Record [X] 84 year-old Female H&P p2 02/01 [facility] PA-C [X] Hx of skin cancer H&P p2 02/01 [facility] PA-C [X] s/p fall H&P p1 02/01 [facility] PA-C [X] Former Smoker Consult 02/03 [X] Moderate PCM Query response Present Treatments Results and Location in Medical Record [X] Hip X-ray Imaging Dr Bains 02/02 [X] Ortho consult Consult Dr Hilliard 02/03 [X] Bone biopsy Procedure Dr Frederick 02/05 CDS/Podiatric Medicine Doctor Signature: Kaity Laughlin Phone #: [phone] Date/Time: 02/13/2020811 This is a permanent part of the Medical Record [facility]
== END 2020-02-10 15:30 | disposition hospice, home (50) | DRG 987 ==
LOC: SURG A 13:31 → 2NO 20:04
PROVIDERS: ADMIT Internal Medicine; ATTEND Student in an Organized Health Care Education/Training Program
PROC: 3E0234Z Introduction of Serum, Toxoid and Vaccine into Muscle, Percutaneous Approach (ICD-10-PCS; 2020-02-04)
PROC: 0QB73ZX Excision of Left Upper Femur, Percutaneous Approach, Diagnostic (ICD-10-PCS; principal; 2020-02-06)
PROC: 4A023N8 Measurement of Cardiac Sampling and Pressure, Bilateral, Percutaneous Approach (ICD-10-PCS; 2020-02-07)
PROC: B2111ZZ Fluoroscopy of Multiple Coronary Arteries using Low Osmolar Contrast (ICD-10-PCS; 2020-02-07)
PROC: B2161ZZ Fluoroscopy of Right and Left Heart using Low Osmolar Contrast (ICD-10-PCS; 2020-02-07)
DX: I08.3 Combined rheumatic disorders of mitral, aortic and tricuspid valves (principal); S72.112A Displaced fracture of greater trochanter of left femur, initial encounter for closed fracture; D62 Acute posthemorrhagic anemia; E22.2 Syndrome of inappropriate secretion of antidiuretic hormone; E44.0 Moderate protein-calorie malnutrition; Z68.1 Body mass index [BMI] 19.9 or less, adult; N39.0 Urinary tract infection, site not specified; Z66 Do not resuscitate; Z51.5 Encounter for palliative care; Z20.828 Contact with and (suspected) exposure to other viral communicable diseases; E78.5 Hyperlipidemia, unspecified; I10 Essential (primary) hypertension; H91.90 Unspecified hearing loss, unspecified ear; R29.6 Repeated falls; K82.8 Other specified diseases of gallbladder; Z53.29 Procedure and treatment not carried out because of patient's decision for other reasons; B96.1 Klebsiella pneumoniae [K. pneumoniae] as the cause of diseases classified elsewhere; Z23 Encounter for immunization; Z85.828 Personal history of other malignant neoplasm of skin; Z87.891 Personal history of nicotine dependence; Z79.899 Other long term (current) drug therapy; W19.XXXA Unspecified fall, initial encounter
CPT/HCPCS: 36415; 71260; 74177; 76705; 77012; 78306; 80048; 80061; 80076; 82306; 82550; 82553; 82607; 82728; 82746; 83540; 83550; 83605; 83690; 83735; 83880; 83883; 83930; 83935; 84165; 84300; 84484; 85025; 85046; 85347; 85610; 85730; 86850; 86900; 86901; 87077; 87086; 87186; 87635; 88307; 88333; 88334; 90471; 90732; 93306; 93460; 93561; 93880; 94760; 99152; 99153; A9503; G0009; J0696; J1644; J1650; J2001; J2250; J2720; J3010; J3475; J3490; Q9967; U0003

== ENCOUNTER 2020-06-18 18:30 | Inpatient (IN) | payer MEDICARE, MEDICAID ==
[2020-06-18] MEDS ORDERED: Dextrose 5% in Water 1,000 ML IV PRN (18:51)
[2020-06-18] MEDS ORDERED: Ondansetron PF 4 MG/2 ML Vial IVP PRN (18:51)
[2020-06-18] MEDS ORDERED: Dextrose 50% Abboject 50 ML SYRINGE SLOW IVP PRN (18:51)
[2020-06-18] MEDS ORDERED: hydrALAZINE 20 MG/ML VIAL SLOW IVP PRN (18:51)
[2020-06-18] MEDS ORDERED: Morphine 2 MG/ML VIAL SLOW IVP PRN (18:51)
[2020-06-18] MEDS ORDERED: Ondansetron ODT 4 MG TAB PO PRN (18:51)
[2020-06-18] MEDS ORDERED: Cyclobenzaprine 10 MG TAB PO PRN (19:01)
[2020-06-18] MEDS ORDERED: traMADol HCl 50 MG TAB PO PRN (19:02)
[2020-06-18 19:40] VITALS: BMI 16.7
[2020-06-18] MEDS: Famotidine 20 MG TAB PO SCH (20:04)
[2020-06-18] MEDS: Acetaminophen 325 MG TAB PO SCH (20:04)
[2020-06-18] MEDS: Ascorbic Acid 500 mg Chewable Tablet PO SCH (20:05)
[2020-06-18] MEDS: Sodium Chloride 0.9% 1,000 ML IV SCH (20:07)
[2020-06-18] MEDS: Senokot S 8.6-50 MG TAB PO SCH (20:07)
[2020-06-18 21:50] LABS: #Lymphocytes 1.1 thou/uL (1.20-3.40); #Neutrophils 7.4 thou/uL (1.40-6.50); %Basophils 0.5 % (0.0-1.0); %Eosinophils 0.3 % (0.0-10.0); %Lymphocytes 11.3 % (21.0-51.0); %Monocytes 10.9 % (0.0-10.0); %Neutrophils 77.1 % (42.0-75.0); Hemoglobin 6.3 g/dL (12.0-16.0); Mean Corpuscular HGB CONC 34.6 g/dL (32.0-36.0); Mean Corpuscular Hemoglobin 31.7 pg (27.0-31.0); Mean Corpuscular Volume 91.4 fL (78.0-98.0); Mean Platelet Volume 6.8 fL (7.4-10.4); Platelet Count 132 thou/uL (130-400); Red Blood Cell (RBC) Count 1.99 mill/uL (4.20-5.40); White Blood Cell (WBC) Count 9.6 thou/uL (4.8-10.8)
[2020-06-18 22:12] LABS: Anion Gap 11 mmol/L (10-20); BUN (Urea Nitrogen) 50 mg/dL (9.8-20.1); Calc. Creatinine Clearance 15 mL/min (70-130); Calcium 7.9 mg/dL (7.8-10.44); Carbon Dioxide 23 mmol/L (23-31); Chloride 93 mmol/L (98-107); Glucose 94 mg/dL (83-110); Phosphorus 3.5 mg/dL (2.3-4.7); Potassium 4.4 mmol/L (3.5-5.1); Sodium 123 mmol/L (136-145)
[2020-06-19] MEDS: Acetaminophen 325 MG TAB PO SCH ×4 (00:02→18:06)
[2020-06-19] MEDS ORDERED: Magnesium 2 GM/50 ML 2 GM in Premix Bag 1 BAG IVPB SCH (01:30)
[2020-06-19] MEDS ORDERED: Sodium Phosphate 30 MMOL in Sodium Chloride 0.9% 250 ML 250 ML IVPB SCH (01:30)
[2020-06-19 02:20] LABS: Bacteria/HPF 2+ HPF (None Seen); Bilirubin Negative (Negative); Blood, Urine 1+ (Negative); Clarity Turbid (Clear); Glucose, Urine (Dipstick) Normal (Negative); Ketone, Urine Negative (Negative); Leukocyte 500 Leu/uL (Negative); Nitrite Negative (Negative); Protein, Urine (Dipstick) 30 mg/dL (Neg-Trace); RBC/HPF 0-3 HPF (0-3); Specific Gravity, Urine 1.012 (1.002-1.036); Squamous Epithelial None Seen HPF (0-3); Urobilinogen Normal mg/dL (Less than 2); WBC/HPF Greater than 50 HPF (0-3); pH, Urine 5.5 (5.0-9.0)
[2020-06-19 02:21] LABS: Urine Culture Reflex Yes Yes
[2020-06-19 05:19] LABS: #Eosinphils 0.1 thou/uL (0.0-0.7); #Lymphocytes 1.3 thou/uL (1.20-3.40); #Neutrophils 6.2 thou/uL (1.40-6.50); %Basophils 0.2 % (0.0-1.0); %Eosinophils 0.7 % (0.0-10.0); %Lymphocytes 15.3 % (21.0-51.0); %Monocytes 11.6 % (0.0-10.0); %Neutrophils 72.3 % (42.0-75.0); Hemoglobin 7.3 g/dL (12.0-16.0); Mean Corpuscular HGB CONC 35.1 g/dL (32.0-36.0); Mean Corpuscular Hemoglobin 31.9 pg (27.0-31.0); Mean Corpuscular Volume 90.9 fL (78.0-98.0); Mean Platelet Volume 7.5 fL (7.4-10.4); Platelet Count 118 thou/uL (130-400); RBC Distribution Width 12.2 % (11.5-14.5); Red Blood Cell (RBC) Count 2.28 mill/uL (4.20-5.40); White Blood Cell (WBC) Count 8.6 thou/uL (4.8-10.8)
[2020-06-19 05:31] LABS: Phosphorus 4.1 mg/dL (2.3-4.7)
[2020-06-19 05:40] LABS: Anion Gap 15 mmol/L (10-20); BUN (Urea Nitrogen) 44 mg/dL (9.8-20.1); CK (CPK) 775 U/L (29-168); Calc. Creatinine Clearance 17 mL/min (70-130); Calcium 7.7 mg/dL (7.8-10.44); Carbon Dioxide 19 mmol/L (23-31); Chloride 91 mmol/L (98-107); Glucose 82 mg/dL (83-110); Magnesium 2.5 mg/dL (1.6-2.6); Sodium 121 mmol/L (136-145)
[2020-06-19] MEDS ORDERED: Sodium Chloride 1 GM TAB PO SCH (07:15)
[2020-06-19] MEDS ORDERED: CEFAZOLIN 2 GM in Premix Bag 1 BAG IVPB SCH (07:45)
[2020-06-19] MEDS ORDERED: FLU VACC QS2020-21(65YR UP)/PF 240 MCG/0.7 ML SYRINGE IM ONE (09:00)
[2020-06-19] MEDS ORDERED: Sodium Chloride 308 MEQ in Sterile Water Injection 923 ML IV SCH ×2 (09:00→19:15)
[2020-06-19] MEDS: cefTRIAXone\\ROCEPHIN 1 GM in Sodium Chloride 0.9% 100 ML IVPB SCH (09:04)
[2020-06-19] MEDS: Ferrous Sulfate 325 MG TAB PO SCH ×2 (09:06→18:06)
[2020-06-19] MEDS: Ascorbic Acid 500 mg Chewable Tablet PO SCH ×2 (09:07→21:27)
[2020-06-19] MEDS: Senokot S 8.6-50 MG TAB PO SCH ×2 (09:08→21:25)
[2020-06-19] MEDS: Polyethylene Glycol 3350 17 GM Packet PO SCH (09:08)
[2020-06-19 09:46] LABS: Anion Gap 15 mmol/L (10-20); BUN (Urea Nitrogen) 42 mg/dL (9.8-20.1); Calc. Creatinine Clearance 19 mL/min (70-130); Calcium 7.7 mg/dL (7.8-10.44); Carbon Dioxide 21 mmol/L (23-31); Chloride 93 mmol/L (98-107); Glucose 85 mg/dL (83-110); Potassium 3.9 mmol/L (3.5-5.1); Sodium 125 mmol/L (136-145)
[2020-06-19] MEDS: Sodium Chloride 1 GM TAB PO SCH ×2 (11:47→21:25)
[2020-06-19] MEDS: Sodium Chloride 0.9% 1,000 ML IV SCH (12:16)
[2020-06-19] MEDS ORDERED: Fentanyl 100 MCG/2 ML VIAL ONE (12:44)
[2020-06-19] MEDS ORDERED: PROPOFOL 200 MG/20 ML VIAL ONE (13:04)
[2020-06-19] MEDS ORDERED: Dexamethasone 20 MG/5 ML VIAL ONE (13:04)
[2020-06-19] MEDS ORDERED: Lidocaine 1% PF 5 ML VIAL ONE (13:04)
[2020-06-19] MEDS ORDERED: Glycopyrrolate 0.2 MG/ML 5 ML SYRINGE ONE (13:04)
[2020-06-19] MEDS ORDERED: Rocuronium Bromide 10 MG/ML (10ML VIAL) ONE (13:04)
[2020-06-19] MEDS ORDERED: Ondansetron PF 4 MG/2 ML Vial ONE (13:04)
[2020-06-19] MEDS ORDERED: Bupivacaine HCl 0.5%/Epinephrine 1:200,000/PF 30 ml Vial ONE (13:04)
[2020-06-19] MEDS ORDERED: Ondansetron HCl/PF 4 MG/2 ML Vial IVP PRN (14:41)
[2020-06-19] MEDS ORDERED: Labetalol HCl 100 MG/20 ML VIAL ONE (15:07)
[2020-06-19 18:29] LABS: #Lymphocytes 0.5 thou/uL (1.20-3.40); #Monocytes 0.5 thou/uL (0.11-0.59); #Neutrophils 12.3 thou/uL (1.40-6.50); %Eosinophils 0.2 % (0.0-10.0); %Monocytes 3.4 % (0.0-10.0); %Neutrophils 92.4 % (42.0-75.0); Hemoglobin 9.9 g/dL (12.0-16.0); Mean Corpuscular HGB CONC 34.1 g/dL (32.0-36.0); Mean Corpuscular Hemoglobin 31.1 pg (27.0-31.0); Mean Corpuscular Volume 91.1 fL (78.0-98.0); Mean Platelet Volume 7.6 fL (7.4-10.4); Platelet Count 166 thou/uL (130-400); RBC Distribution Width 12.5 % (11.5-14.5); White Blood Cell (WBC) Count 13.3 thou/uL (4.8-10.8)
[2020-06-19 18:38] LABS: Anion Gap 17 mmol/L (10-20); BUN (Urea Nitrogen) 38 mg/dL (9.8-20.1); Calc. Creatinine Clearance 21 mL/min (70-130); Calcium 8.2 mg/dL (7.8-10.44); Carbon Dioxide 19 mmol/L (23-31); Chloride 97 mmol/L (98-107); Glucose 135 mg/dL (83-110); Potassium 3.7 mmol/L (3.5-5.1); Sodium 129 mmol/L (136-145)
[2020-06-19] MEDS: CEFAZOLIN 2 GM in Premix Bag 1 BAG IVPB SCH (21:28)
[2020-06-19] MEDS: Famotidine 20 MG TAB PO SCH (21:28)
[2020-06-20] MEDS: Acetaminophen 325 MG TAB PO SCH ×4 (02:24→20:40)
[2020-06-20 05:57] LABS: Anion Gap 14 mmol/L (10-20); BUN (Urea Nitrogen) 32 mg/dL (9.8-20.1); Calc. Creatinine Clearance 26 mL/min (70-130); Calcium 7.4 mg/dL (7.8-10.44); Carbon Dioxide 18 mmol/L (23-31); Chloride 98 mmol/L (98-107); Glucose 110 mg/dL (83-110); Magnesium 2.1 mg/dL (1.6-2.6); Phosphorus 3.8 mg/dL (2.3-4.7); Potassium 3.7 mmol/L (3.5-5.1); Sodium 126 mmol/L (136-145)
[2020-06-20 06:06] LABS: #Lymphocytes 0.5 thou/uL (1.20-3.40); #Neutrophils 7.6 thou/uL (1.40-6.50); %Eosinophils 0.3 % (0.0-10.0); %Lymphocytes 5.9 % (21.0-51.0); %Monocytes 10.8 % (0.0-10.0); Hemoglobin 7.8 g/dL (12.0-16.0); Hypochromia SLIGHT = 6-15 cells (100X) (0-5/hpf); MDiff Complete? YES; Mean Corpuscular HGB CONC 34.2 g/dL (32.0-36.0); Mean Corpuscular Hemoglobin 31.4 pg (27.0-31.0); Mean Corpuscular Volume 91.8 fL (78.0-98.0); Mean Platelet Volume 7.5 fL (7.4-10.4); Platelet Count 88 thou/uL (130-400); Platelet Morphology Comment Appears Decreased; RBC Distribution Width 12.7 % (11.5-14.5); Red Blood Cell (RBC) Count 2.49 mill/uL (4.20-5.40); White Blood Cell (WBC) Count 9.2 thou/uL (4.8-10.8)
[2020-06-20] MEDS: CEFAZOLIN 2 GM in Premix Bag 1 BAG IVPB SCH (06:23)
[2020-06-20] MEDS ORDERED: Sodium Chloride 308 MEQ in Sterile Water Injection 923 ML IV SCH (08:13)
[2020-06-20] MEDS: cefTRIAXone\\ROCEPHIN 1 GM in Sodium Chloride 0.9% 100 ML IVPB SCH ×2 (09:00→09:21)
[2020-06-20] MEDS: Sodium Chloride 1 GM TAB PO SCH ×2 (09:15→20:40)
[2020-06-20] MEDS: Senokot S 8.6-50 MG TAB PO SCH ×2 (09:16→20:39)
[2020-06-20] MEDS: Ascorbic Acid 500 mg Chewable Tablet PO SCH ×2 (09:16→20:40)
[2020-06-20] MEDS: Polyethylene Glycol 3350 17 GM Packet PO SCH (09:17)
[2020-06-20 15:41] LABS: Iron 22 ug/dL (50-170); Iron Binding Capacity, Total 203 mcg/dL (265-497)
[2020-06-20 16:06] LABS: Ferritin 462.26 ng/mL (10-291)
[2020-06-20] MEDS: Ferrous Sulfate 325 MG TAB PO SCH ×2 (17:47→20:40)
[2020-06-20] MEDS: Famotidine 20 MG TAB PO SCH (20:40)
[2020-06-21] MEDS: Acetaminophen 325 MG TAB PO SCH ×3 (01:50→12:46)
[2020-06-21 06:30] LABS: Hemoglobin 7.9 g/dL (12.0-16.0); Mean Corpuscular HGB CONC 34.3 g/dL (32.0-36.0); Mean Corpuscular Hemoglobin 31.5 pg (27.0-31.0); Mean Corpuscular Volume 91.8 fL (78.0-98.0); Mean Platelet Volume 7.2 fL (7.4-10.4); Platelet Count 75 thou/uL (130-400); RBC Distribution Width 12.7 % (11.5-14.5); Red Blood Cell (RBC) Count 2.52 mill/uL (4.20-5.40); White Blood Cell (WBC) Count 10.1 thou/uL (4.8-10.8)
[2020-06-21] MEDS: Ascorbic Acid 500 mg Chewable Tablet PO SCH (09:01)
[2020-06-21] MEDS: Senokot S 8.6-50 MG TAB PO SCH (09:01)
[2020-06-21] MEDS: Ferrous Sulfate 325 MG TAB PO SCH (09:01)
[2020-06-21] MEDS: Sodium Chloride 1 GM TAB PO SCH (09:01)
[2020-06-21] MEDS: Polyethylene Glycol 3350 17 GM Packet PO SCH (09:02)
[2020-06-21] MEDS ORDERED: Cyanocobalamin 1000 MCG/ML VIAL IM SCH (10:00)
[2020-06-21] MEDS: cefTRIAXone\\ROCEPHIN 1 GM in Sodium Chloride 0.9% 100 ML IVPB SCH (10:09)
[2020-06-21 15:04] LABS: Calcium 7.7 mg/dL (7.8-10.44); Chloride 98 mmol/L (98-107); Potassium 3.7 mmol/L (3.5-5.1); Sodium 127 mmol/L (136-145)
[2020-06-21 15:05] LABS: Glucose 86 mg/dL (83-110)
[2020-06-21 15:06] LABS: Anion Gap 9 mmol/L (10-20); Carbon Dioxide 24 mmol/L (23-31)
[2020-06-21 15:08] LABS: Calc. Creatinine Clearance 40 mL/min (70-130)
[2020-06-21 15:09] LABS: BUN (Urea Nitrogen) 20 mg/dL (9.8-20.1)
[2020-06-21 15:10] LABS: Magnesium 1.7 mg/dL (1.6-2.6)
[2020-06-21 15:18] LABS: Phosphorus 2.3 mg/dL (2.3-4.7)
[2020-06-21 15:40] VITALS: BP 114/65; TEMP 98.1
[2020-06-21] MEDS ORDERED: Ciprofloxacin 500 MG TAB PO SCH (20:00)
[2020-06-22] MEDS ORDERED: Aspirin 81 mg Enteric Coated Tablet PO SCH (09:00)
== END 2020-06-21 17:50 | DRG 480 ==
LOC: SJJU 18:30
PROVIDERS: ADMIT Surgery; ATTEND Surgery
PROC: 30233N1 Transfusion of Nonautologous Red Blood Cells into Peripheral Vein, Percutaneous Approach (ICD-10-PCS; 2020-06-18)
PROC: 0QS706Z Reposition Left Upper Femur with Intramedullary Internal Fixation Device, Open Approach (ICD-10-PCS; principal; 2020-06-19)
DX: S72.142A Displaced intertrochanteric fracture of left femur, initial encounter for closed fracture (principal); E43 Unspecified severe protein-calorie malnutrition; E87.1 Hypo-osmolality and hyponatremia; N17.9 Acute kidney failure, unspecified; N39.0 Urinary tract infection, site not specified; Z68.1 Body mass index [BMI] 19.9 or less, adult; D63.1 Anemia in chronic kidney disease; E78.5 Hyperlipidemia, unspecified; I11.0 Hypertensive heart disease with heart failure; D51.9 Vitamin B12 deficiency anemia, unspecified; B96.1 Klebsiella pneumoniae [K. pneumoniae] as the cause of diseases classified elsewhere; N18.9 Chronic kidney disease, unspecified; W18.30XA Fall on same level, unspecified, initial encounter; Z85.828 Personal history of other malignant neoplasm of skin; Y92.000 Kitchen of unspecified non-institutional (private) residence as the place of occurrence of the external cause
CPT/HCPCS: 36415; 36430; 76000; 80048; 81001; 82533; 82550; 82607; 82728; 82746; 83540; 83550; 83735; 84100; 84300; 85025; 85027; 86850; 86900; 86901; 87077; 87086; 87186; A4217; C1713; J0690; J0696; J1100; J2405; J2704; J3010; J3420; J3475; J3490; J7030; J7050; P9016

== ENCOUNTER 2021-05-04 18:09 | Inpatient (IN) | payer MEDICARE, MEDICAID ==
[2021-05-04] MEDS ORDERED: Ondansetron PF 4 MG/2 ML Vial IVP PRN (20:45)
[2021-05-04] MEDS ORDERED: Acetaminophen 325 MG TAB PO PRN (20:45)
[2021-05-04] MEDS ORDERED: Dextrose 5% in Water 1,000 ML IV PRN (20:49)
[2021-05-04] MEDS ORDERED: Dextrose 50% Abboject 50 ML SYRINGE SLOW IVP PRN (20:49)
[2021-05-04] MEDS ORDERED: Sodium Chloride 0.9% 1,000 ML IV SCH (21:00)
[2021-05-04 22:36] LABS: Anion Gap 14 mmol/L (10-20); BUN (Urea Nitrogen) 19 mg/dL (9.8-20.1); Calc. Creatinine Clearance 0 mL/min (70-130); Carbon Dioxide 22 mmol/L (23-31); Chloride 89 mmol/L (98-107); Glucose 65 mg/dL (83-110); Potassium 3.6 mmol/L (3.5-5.1); Sodium 121 mmol/L (136-145)
[2021-05-04 23:29] VITALS: BMI 15.5
[2021-05-05] MEDS: cefTRIAXone\\ROCEPHIN 1 GM in Sodium Chloride 0.9% 100 ML IVPB SCH (04:31)
[2021-05-05 05:50] LABS: #Lymphocytes 0.9 thou/uL (1.20-3.40); #Monocytes 0.5 thou/uL (0.11-0.59); #Neutrophils 4.5 thou/uL (1.40-6.50); %Basophils 0.1 % (0.0-1.0); %Eosinophils 0.2 % (0.0-10.0); %Lymphocytes 14.3 % (21.0-51.0); %Monocytes 8.9 % (0.0-10.0); %Neutrophils 76.5 % (42.0-75.0); Hemoglobin 8.1 g/dL (12.0-16.0); Mean Corpuscular HGB CONC 34.6 g/dL (32.0-36.0); Mean Corpuscular Hemoglobin 33.5 pg (27.0-31.0); Mean Corpuscular Volume 96.7 fL (78.0-98.0); Mean Platelet Volume 6.8 fL (7.4-10.4); Platelet Count 78 thou/uL (130-400); RBC Distribution Width 11.7 % (11.5-14.5); Red Blood Cell (RBC) Count 2.43 mill/uL (4.20-5.40); White Blood Cell (WBC) Count 5.9 thou/uL (4.8-10.8)
[2021-05-05 06:08] LABS: Anion Gap 12 mmol/L (10-20); BUN (Urea Nitrogen) 16 mg/dL (9.8-20.1); Calc. Creatinine Clearance 37 mL/min (70-130); Calcium 7.8 mg/dL (7.8-10.44); Carbon Dioxide 20 mmol/L (23-31); Chloride 92 mmol/L (98-107); Glucose 66 mg/dL (83-110); Potassium 3.1 mmol/L (3.5-5.1); Sodium 121 mmol/L (136-145)
[2021-05-05 06:09] LABS: ALT (SGPT) 17 U/L (8-55); AST (SGOT) 48 U/L (5-34); Albumin 2.9 g/dL (3.4-4.8); Alkaline Phosphatase 76 U/L (40-110); Bilirubin, Direct 0.5 mg/dL (0.1-0.3); Bilirubin, Total 0.9 mg/dL (0.2-1.2); Protein, Total 5.2 g/dL (5.8-8.1)
[2021-05-05] MEDS: Enoxaparin Sodium 40 MG/0.4 ML SYRINGE SC SCH (09:04)
[2021-05-05] MEDS: Sodium Chloride 0.9% 1,000 ML IV SCH ×2 (10:20→20:54)
[2021-05-05] MEDS ORDERED: Potassium Chloride 20 MEQ TAB PO SCH (14:00)
[2021-05-06] MEDS: cefTRIAXone\\ROCEPHIN 1 GM in Sodium Chloride 0.9% 100 ML IVPB SCH (04:53)
[2021-05-06 06:36] LABS: #Monocytes 0.5 thou/uL (0.11-0.59); #Neutrophils 4.3 thou/uL (1.40-6.50); %Basophils 0.8 % (0.0-1.0); %Eosinophils 0.7 % (0.0-10.0); %Lymphocytes 17.3 % (21.0-51.0); %Monocytes 8.7 % (0.0-10.0); %Neutrophils 72.5 % (42.0-75.0); Hemoglobin 8.2 g/dL (12.0-16.0); Mean Corpuscular HGB CONC 33.8 g/dL (32.0-36.0); Mean Corpuscular Hemoglobin 33.4 pg (27.0-31.0); Platelet Count 98 thou/uL (130-400); RBC Distribution Width 11.9 % (11.5-14.5); Red Blood Cell (RBC) Count 2.44 mill/uL (4.20-5.40); White Blood Cell (WBC) Count 5.9 thou/uL (4.8-10.8)
[2021-05-06 06:49] LABS: Anion Gap 12 mmol/L (10-20); BUN (Urea Nitrogen) 8 mg/dL (9.8-20.1); Calc. Creatinine Clearance 38 mL/min (70-130); Calcium 7.9 mg/dL (7.8-10.44); Carbon Dioxide 22 mmol/L (23-31); Chloride 96 mmol/L (98-107); Glucose 86 mg/dL (83-110); Potassium 3.5 mmol/L (3.5-5.1); Sodium 126 mmol/L (136-145)
[2021-05-06] MEDS: Enoxaparin Sodium 40 MG/0.4 ML SYRINGE SC SCH (09:04)
[2021-05-06] MEDS: Sodium Chloride 0.9% 1,000 ML IV SCH ×2 (09:04→17:04)
[2021-05-06 22:06] VITALS: TEMP 98.5
[2021-05-07] MEDS: cefTRIAXone\\ROCEPHIN 1 GM in Sodium Chloride 0.9% 100 ML IVPB SCH ×2 (04:15→06:12)
[2021-05-07] MEDS: Sodium Chloride 0.9% 1,000 ML IV SCH (06:12)
[2021-05-07 07:43] LABS: #Eosinphils 0.1 thou/uL (0.0-0.7); #Lymphocytes 0.9 thou/uL (1.20-3.40); #Monocytes 0.6 thou/uL (0.11-0.59); #Neutrophils 4.1 thou/uL (1.40-6.50); %Basophils 0.6 % (0.0-1.0); %Eosinophils 1.3 % (0.0-10.0); %Lymphocytes 16.2 % (21.0-51.0); %Monocytes 9.9 % (0.0-10.0); Hemoglobin 8.1 g/dL (12.0-16.0); Mean Corpuscular HGB CONC 34.9 g/dL (32.0-36.0); Mean Corpuscular Hemoglobin 34.8 pg (27.0-31.0); Mean Corpuscular Volume 99.6 fL (78.0-98.0); Mean Platelet Volume 7.2 fL (7.4-10.4); Platelet Count 88 thou/uL (130-400); RBC Distribution Width 12.1 % (11.5-14.5); Red Blood Cell (RBC) Count 2.33 mill/uL (4.20-5.40); White Blood Cell (WBC) Count 5.8 thou/uL (4.8-10.8)
[2021-05-07 07:52] LABS: Anion Gap 11 mmol/L (10-20); BUN (Urea Nitrogen) 5 mg/dL (9.8-20.1); Calc. Creatinine Clearance 42 mL/min (70-130); Calcium 7.4 mg/dL (7.8-10.44); Carbon Dioxide 21 mmol/L (23-31); Glucose 78 mg/dL (83-110)
[2021-05-07 08:23] LABS: Chloride 96 mmol/L (98-107); Potassium 2.9 mmol/L (3.5-5.1); Sodium 125 mmol/L (136-145)
[2021-05-07] MEDS ORDERED: Amlodipine 10 MG TAB PO SCH (09:00)
[2021-05-07 09:17] VITALS: BP 121/58
[2021-05-07] MEDS ORDERED: Potassium Chloride 20 MEQ TAB PO SCH ×2 (09:30→14:00)
== END 2021-05-07 17:17 | DRG 312 ==
LOC: T4-B 18:52 → INTOOBSV 18:52 → OBSVTOIN 05-05 13:47
PROVIDERS: ADMIT Internal Medicine; ATTEND Internal Medicine
DX: I95.2 Hypotension due to drugs (principal); E87.1 Hypo-osmolality and hyponatremia; N39.0 Urinary tract infection, site not specified; Z20.822 Contact with and (suspected) exposure to COVID-19; I10 Essential (primary) hypertension; E78.5 Hyperlipidemia, unspecified; E87.6 Hypokalemia; T50.2X5A Adverse effect of carbonic-anhydrase inhibitors, benzothiadiazides and other diuretics, initial encounter; Z79.899 Other long term (current) drug therapy; Z79.82 Long term (current) use of aspirin; Z87.891 Personal history of nicotine dependence
CPT/HCPCS: 36415; 36416; 80048; 80076; 83930; 83935; 84300; 84443; 85025; 96365; 96372; G0378; J0696; J1650; J3490; J7050

== ENCOUNTER 2021-11-25 17:13 | Inpatient (IN) | payer MEDICARE, MEDICAID ==
[2021-11-25 20:53] LABS: Anion Gap 15 mmol/L (10-20); BUN (Urea Nitrogen) 15 mg/dL (9.8-20.1); Calc. Creatinine Clearance 35 mL/min (70-130); Calcium 7.7 mg/dL (7.8-10.44); Carbon Dioxide 19 mmol/L (23-31); Chloride 91 mmol/L (98-107); Estimated GFR 75; Glucose 91 mg/dL (83-110); Potassium 4.2 mmol/L (3.5-5.1); Sodium 121 mmol/L (136-145)
[2021-11-25] MEDS ORDERED: Ondansetron PF 4 MG/2 ML Vial IVP PRN (20:58)
[2021-11-25] MEDS ORDERED: Acetaminophen 650 MG Suppository PR PRN (20:58)
[2021-11-25] MEDS ORDERED: Ondansetron ODT 4 MG TAB PO PRN (20:58)
[2021-11-26] MEDS: Acetaminophen 325 MG TAB PO PRN ×2 (00:03→20:16)
[2021-11-26 02:16] LABS: #Lymphocytes 0.7 thou/uL (1.20-3.40); #Monocytes 0.7 thou/uL (0.11-0.59); #Neutrophils 6.7 thou/uL (1.40-6.50); %Basophils 0.1 % (0.0-1.0); %Eosinophils 0.3 % (0.0-10.0); %Lymphocytes 8.5 % (21.0-51.0); %Monocytes 8.9 % (0.0-10.0); %Neutrophils 82.3 % (42.0-75.0); Hemoglobin 9.4 g/dL (12.0-16.0); Mean Corpuscular HGB CONC 33.4 g/dL (32.0-36.0); Mean Corpuscular Hemoglobin 31.9 pg (27.0-31.0); Mean Corpuscular Volume 95.7 fL (78.0-98.0); Mean Platelet Volume 9.1 fL (7.4-10.4); Platelet Count 62 thou/uL (130-400); RBC Distribution Width 13.9 % (11.5-14.5); Red Blood Cell (RBC) Count 2.93 mill/uL (4.20-5.40); White Blood Cell (WBC) Count 8.1 thou/uL (4.8-10.8)
[2021-11-26 02:36] LABS: Anion Gap 15 mmol/L (10-20); BUN (Urea Nitrogen) 15 mg/dL (9.8-20.1); Calc. Creatinine Clearance 36 mL/min (70-130); Calcium 7.9 mg/dL (7.8-10.44); Carbon Dioxide 19 mmol/L (23-31); Chloride 92 mmol/L (98-107); Estimated GFR 77; Glucose 79 mg/dL (83-110); Sodium 122 mmol/L (136-145)
[2021-11-26] MEDS ORDERED: Enoxaparin Sodium 40 MG/0.4 ML SYRINGE SC SCH (09:00)
[2021-11-26 11:25] VITALS: BMI 18.2
[2021-11-26] MEDS: Sodium Chloride 1 GM TAB PO SCH ×3 (13:43→20:16)
[2021-11-27 06:51] LABS: #Lymphocytes 0.6 thou/uL (1.20-3.40); #Monocytes 0.6 thou/uL (0.11-0.59); #Neutrophils 8.6 thou/uL (1.40-6.50); %Eosinophils 0.3 % (0.0-10.0); %Lymphocytes 6.2 % (21.0-51.0); %Monocytes 5.6 % (0.0-10.0); %Neutrophils 87.9 % (42.0-75.0); Hemoglobin 10.2 g/dL (12.0-16.0); Mean Corpuscular HGB CONC 32.6 g/dL (32.0-36.0); Mean Corpuscular Hemoglobin 31.5 pg (27.0-31.0); Mean Corpuscular Volume 96.7 fL (78.0-98.0); Platelet Count 85 thou/uL (130-400); RBC Distribution Width 14.1 % (11.5-14.5); Red Blood Cell (RBC) Count 3.24 mill/uL (4.20-5.40); White Blood Cell (WBC) Count 9.8 thou/uL (4.8-10.8)
[2021-11-27 07:13] LABS: Anion Gap 13 mmol/L (10-20); BUN (Urea Nitrogen) 11 mg/dL (9.8-20.1); Calc. Creatinine Clearance 39 mL/min (70-130); Calcium 7.8 mg/dL (7.8-10.44); Carbon Dioxide 23 mmol/L (23-31); Chloride 94 mmol/L (98-107); Estimated GFR 84; Glucose 79 mg/dL (83-110); Potassium 3.9 mmol/L (3.5-5.1); Sodium 126 mmol/L (136-145)
[2021-11-27] MEDS: Sodium Chloride 1 GM TAB PO SCH ×3 (09:06→20:56)
[2021-11-27] MEDS: Enoxaparin Sodium 30 MG/0.3 ML SYRINGE SC SCH (09:07)
[2021-11-27] MEDS ORDERED: Senokot S 8.6-50 MG TAB PO PRN (20:44)
[2021-11-27] MEDS ORDERED: Bisacodyl 5 MG TAB PO PRN (20:44)
[2021-11-27] MEDS: Acetaminophen 325 MG TAB PO PRN (20:55)
[2021-11-28 07:15] LABS: Anion Gap 13 mmol/L (10-20); BUN (Urea Nitrogen) 9 mg/dL (9.8-20.1); Calc. Creatinine Clearance 42 mL/min (70-130); Calcium 7.9 mg/dL (7.8-10.44); Carbon Dioxide 22 mmol/L (23-31); Chloride 95 mmol/L (98-107); Estimated GFR 86; Glucose 67 mg/dL (83-110); Potassium 3.8 mmol/L (3.5-5.1); Sodium 126 mmol/L (136-145)
[2021-11-28] MEDS: Sodium Chloride 1 GM TAB PO SCH ×3 (07:53→20:51)
[2021-11-28] MEDS: Enoxaparin Sodium 30 MG/0.3 ML SYRINGE SC SCH (07:53)
[2021-11-28] MEDS: Acetaminophen 325 MG TAB PO PRN (20:50)
[2021-11-29 07:26] LABS: ALT (SGPT) 18 U/L (8-55); AST (SGOT) 19 U/L (5-34); Albumin 2.3 g/dL (3.4-4.8); Alkaline Phosphatase 143 U/L (40-110); Anion Gap 14 mmol/L (10-20); BUN (Urea Nitrogen) 8 mg/dL (9.8-20.1); Bilirubin, Total 0.7 mg/dL (0.2-1.2); Calc. Creatinine Clearance 41 mL/min (70-130); Calcium 7.6 mg/dL (7.8-10.44); Carbon Dioxide 22 mmol/L (23-31); Chloride 98 mmol/L (98-107); Estimated GFR 85; Globulin 2.6 g/dL (2.4-3.5); Glucose 66 mg/dL (83-110); Potassium 3.6 mmol/L (3.5-5.1); Protein, Total 4.9 g/dL (5.8-8.1); Sodium 130 mmol/L (136-145)
[2021-11-29] MEDS: Sodium Chloride 1 GM TAB PO SCH ×2 (08:26→15:21)
[2021-11-29] MEDS: Enoxaparin Sodium 30 MG/0.3 ML SYRINGE SC SCH (08:27)
[2021-11-29 16:49] VITALS: BP 113/69; TEMP 97.8
== END 2021-11-29 16:40 | DRG 643 ==
LOC: T4-A 17:15
PROVIDERS: ADMIT Student in an Organized Health Care Education/Training Program; ATTEND Student in an Organized Health Care Education/Training Program
DX: E22.2 Syndrome of inappropriate secretion of antidiuretic hormone (principal); E43 Unspecified severe protein-calorie malnutrition; Z68.1 Body mass index [BMI] 19.9 or less, adult; Z20.822 Contact with and (suspected) exposure to COVID-19; D64.9 Anemia, unspecified; I35.8 Other nonrheumatic aortic valve disorders; H54.7 Unspecified visual loss; R29.6 Repeated falls; Z91.81 History of falling; Z87.891 Personal history of nicotine dependence; Z87.440 Personal history of urinary (tract) infections; Z79.899 Other long term (current) drug therapy
CPT/HCPCS: 36415; 71045; 80048; 80053; 82533; 83930; 83935; 84443; 84550; 85025; 97139; J1650; U0003; U0005

== ENCOUNTER 2021-12-09 18:26 | Inpatient (IN) | payer MEDICARE, MEDICAID ==
[~2021-12-09 18:26] MED LIST: Iopamidol-370 76% 500 ML 1 ML ONE
[2021-12-09 19:49] LABS: #Lymphocytes 0.5 thou/uL (1.20-3.40); #Monocytes 0.9 thou/uL (0.11-0.59); #Neutrophils 11.1 thou/uL (1.40-6.50); %Basophils 0.1 % (0.0-1.0); %Eosinophils 0.2 % (0.0-10.0); %Lymphocytes 3.9 % (21.0-51.0); %Monocytes 7.5 % (0.0-10.0); %Neutrophils 88.3 % (42.0-75.0); Hemoglobin 11.5 g/dL (12.0-16.0); Mean Corpuscular HGB CONC 31.4 g/dL (32.0-36.0); Mean Corpuscular Hemoglobin 30.9 pg (27.0-31.0); Mean Corpuscular Volume 98.4 fL (78.0-98.0); Mean Platelet Volume 12.5 fL (7.4-10.4); Platelet Count 18 thou/uL (130-400); RBC Distribution Width 14.4 % (11.5-14.5); Red Blood Cell (RBC) Count 3.72 mill/uL (4.20-5.40); White Blood Cell (WBC) Count 12.6 thou/uL (4.8-10.8)
[2021-12-09 19:50] LABS: Platelet Morphology Comment Appears Decreased
[2021-12-09 20:00] LABS: ALT (SGPT) 9 U/L (8-55); AST (SGOT) 14 U/L (5-34); Albumin 2.5 g/dL (3.4-4.8); Alkaline Phosphatase 321 U/L (40-110); Anion Gap 15 mmol/L (10-20); BUN (Urea Nitrogen) 29 mg/dL (9.8-20.1); Bilirubin, Total 1.2 mg/dL (0.2-1.2); Calc. Creatinine Clearance 0 mL/min (70-130); Calcium 8.1 mg/dL (7.8-10.44); Carbon Dioxide 23 mmol/L (23-31); Chloride 95 mmol/L (98-107); Estimated GFR 61; Globulin 2.8 g/dL (2.4-3.5); Glucose 125 mg/dL (83-110); Potassium 5.3 mmol/L (3.5-5.1); Protein, Total 5.3 g/dL (5.8-8.1); Sodium 128 mmol/L (136-145)
[2021-12-09 20:07] LABS: SARS-CoV-2 NAA Rapid Test Not Detected (NotDetected)
[2021-12-09] MEDS ORDERED: Furosemide 40 MG/4 ML VIAL ONE (20:08)
[2021-12-09 20:20] LABS: CKMB 1.7 ng/mL (0-6.6)
[2021-12-09] MEDS ORDERED: cefTRIAXone\\ROCEPHIN 2 GM VIAL ONE (20:49)
[2021-12-09] MEDS ORDERED: Bisacodyl 5 MG TAB PO PRN (21:21)
[2021-12-09] MEDS ORDERED: HYDROcodone/Acetaminophen 7.5/325 mg Tablet PO PRN (21:21)
[2021-12-09] MEDS ORDERED: Ondansetron PF 4 MG/2 ML Vial IVP PRN (21:21)
[2021-12-09] MEDS ORDERED: Zolpidem Tartrate 5 MG TAB PO PRN (21:21)
[2021-12-09] MEDS ORDERED: Furosemide 40 MG/4 ML VIAL SLOW IVP SCH (21:22)
[2021-12-09] MEDS ORDERED: Azithromycin 500 MG VIAL ONE (21:35)
[2021-12-09 23:30] LABS: Troponin I 0.231 ng/mL (< 0.028)
[2021-12-10] MEDS ORDERED: Argatroban (Non -ESRD) 250 MG in Sodium Chloride 0.9% 250 ML 250 ML IVPB SCH (00:30)
[2021-12-10 01:04] LABS: INR-International Normal Ratio 1.2; Prothrombin Time 15.5 sec (12.0-14.7)
[2021-12-10 01:05] LABS: PTT 41.2 sec (22.9-36.1)
[2021-12-10 01:14] LABS: ALT (SGPT) 12 U/L (8-55); AST (SGOT) 14 U/L (5-34); Albumin 2.6 g/dL (3.4-4.8); Alkaline Phosphatase 302 U/L (40-110); Bilirubin, Direct 0.7 mg/dL (0.1-0.3); Bilirubin, Total 1.3 mg/dL (0.2-1.2); Protein, Total 5.5 g/dL (5.8-8.1)
[2021-12-10 02:26] LABS: Troponin I 0.217 ng/mL (< 0.028)
[2021-12-10 04:53] LABS: Hemoglobin 11.9 g/dL (12.0-16.0); Mean Corpuscular HGB CONC 31.6 g/dL (32.0-36.0); Mean Corpuscular Hemoglobin 31.2 pg (27.0-31.0); Mean Corpuscular Volume 98.7 fL (78.0-98.0); Mean Platelet Volume 12.4 fL (7.4-10.4); Platelet Count 26 thou/uL (130-400); RBC Distribution Width 14.4 % (11.5-14.5); Red Blood Cell (RBC) Count 3.82 mill/uL (4.20-5.40); White Blood Cell (WBC) Count 13.1 thou/uL (4.8-10.8)
[2021-12-10 04:54] LABS: #Lymphocytes 0.6 thou/uL (1.20-3.40); #Neutrophils 11.4 thou/uL (1.40-6.50); %Eosinophils 0.1 % (0.0-10.0); %Lymphocytes 4.9 % (21.0-51.0)
[2021-12-10 05:10] LABS: ALT (SGPT) 9 U/L (8-55); AST (SGOT) 14 U/L (5-34); Albumin 2.6 g/dL (3.4-4.8); Alkaline Phosphatase 302 U/L (40-110); Anion Gap 17 mmol/L (10-20); BUN (Urea Nitrogen) 28 mg/dL (9.8-20.1); Bilirubin, Total 0.9 mg/dL (0.2-1.2); Calc. Creatinine Clearance 29 mL/min (70-130); Calcium 8.5 mg/dL (7.8-10.44); Carbon Dioxide 25 mmol/L (23-31); Chloride 93 mmol/L (98-107); Estimated GFR 58; Globulin 3.4 g/dL (2.4-3.5); Glucose 99 mg/dL (83-110); Potassium 4.8 mmol/L (3.5-5.1); Sodium 130 mmol/L (136-145)
[2021-12-10 05:13] LABS: Troponin I 0.224 ng/mL (< 0.028)
[2021-12-10] MEDS: Furosemide 40 MG/4 ML VIAL SLOW IVP SCH ×2 (06:38→14:12)
[2021-12-10] MEDS: Sodium Chloride 1 GM TAB PO SCH (11:57)
[2021-12-11] MEDS: Acetaminophen 325 MG TAB PO PRN ×2 (01:06→23:29)
[2021-12-11 04:59] LABS: #Lymphocytes 0.8 thou/uL (1.20-3.40); #Monocytes 1.3 thou/uL (0.11-0.59); #Neutrophils 9.3 thou/uL (1.40-6.50); %Eosinophils 0.2 % (0.0-10.0); %Lymphocytes 7.1 % (21.0-51.0); %Monocytes 11.1 % (0.0-10.0); %Neutrophils 81.5 % (42.0-75.0); Hemoglobin 11.3 g/dL (12.0-16.0); Mean Corpuscular Hemoglobin 30.8 pg (27.0-31.0); Mean Corpuscular Volume 99.2 fL (78.0-98.0); Mean Platelet Volume 11.3 fL (7.4-10.4); Platelet Count 34 thou/uL (130-400); RBC Distribution Width 14.3 % (11.5-14.5); Red Blood Cell (RBC) Count 3.66 mill/uL (4.20-5.40); White Blood Cell (WBC) Count 11.4 thou/uL (4.8-10.8)
[2021-12-11 05:15] LABS: Anion Gap 17 mmol/L (10-20); BUN (Urea Nitrogen) 29 mg/dL (9.8-20.1); Calc. Creatinine Clearance 35 mL/min (70-130); Calcium 7.8 mg/dL (7.8-10.44); Carbon Dioxide 27 mmol/L (23-31); Chloride 92 mmol/L (98-107); Estimated GFR 72; Glucose 66 mg/dL (83-110); Potassium 3.5 mmol/L (3.5-5.1); Sodium 132 mmol/L (136-145)
[2021-12-11] MEDS: Furosemide 40 MG/4 ML VIAL SLOW IVP SCH ×2 (05:58→15:04)
[2021-12-11] MEDS: Sodium Chloride 1 GM TAB PO SCH (10:14)
[2021-12-11 13:56] VITALS: BMI 19.3
[2021-12-11 23:24] LABS: #Lymphocytes 0.6 thou/uL (1.20-3.40); #Monocytes 0.9 thou/uL (0.11-0.59); #Neutrophils 8.8 thou/uL (1.40-6.50); %Eosinophils 0.4 % (0.0-10.0); %Lymphocytes 5.8 % (21.0-51.0); %Neutrophils 84.8 % (42.0-75.0); Mean Corpuscular HGB CONC 31.5 g/dL (32.0-36.0); Mean Corpuscular Volume 98.5 fL (78.0-98.0); Platelet Count 40 thou/uL (130-400); RBC Distribution Width 14.2 % (11.5-14.5); Red Blood Cell (RBC) Count 3.87 mill/uL (4.20-5.40); White Blood Cell (WBC) Count 10.4 thou/uL (4.8-10.8)
[2021-12-11 23:39] LABS: ALT (SGPT) 9 U/L (8-55); AST (SGOT) 15 U/L (5-34); Albumin 2.4 g/dL (3.4-4.8); Alkaline Phosphatase 216 U/L (40-110); Anion Gap 15 mmol/L (10-20); BUN (Urea Nitrogen) 30 mg/dL (9.8-20.1); Bilirubin, Total 0.8 mg/dL (0.2-1.2); Calc. Creatinine Clearance 35 mL/min (70-130); Carbon Dioxide 31 mmol/L (23-31); Chloride 91 mmol/L (98-107); Estimated GFR 72; Glucose 83 mg/dL (83-110); Potassium 3.2 mmol/L (3.5-5.1); Protein, Total 5.4 g/dL (5.8-8.1); Sodium 134 mmol/L (136-145)
[2021-12-12] MEDS ORDERED: Sodium Chloride 0.9% 500 ML IV SCH (00:30)
[2021-12-12] MEDS ORDERED: Potassium Chloride 20 MEQ in Premix Bag 1 BAG IVPB SCH (00:30)
[2021-12-12 04:28] LABS: Anion Gap 14 mmol/L (10-20); BUN (Urea Nitrogen) 29 mg/dL (9.8-20.1); Calc. Creatinine Clearance 39 mL/min (70-130); Calcium 7.6 mg/dL (7.8-10.44); Carbon Dioxide 30 mmol/L (23-31); Chloride 93 mmol/L (98-107); Estimated GFR 79; Glucose 72 mg/dL (83-110); Potassium 3.6 mmol/L (3.5-5.1); Sodium 133 mmol/L (136-145)
[2021-12-12 04:38] LABS: #Lymphocytes 0.6 thou/uL (1.20-3.40); #Neutrophils 8.8 thou/uL (1.40-6.50); %Eosinophils 0.4 % (0.0-10.0); %Lymphocytes 5.7 % (21.0-51.0); %Monocytes 9.3 % (0.0-10.0); %Neutrophils 84.6 % (42.0-75.0); Hemoglobin 11.8 g/dL (12.0-16.0); Mean Corpuscular HGB CONC 31.8 g/dL (32.0-36.0); Mean Corpuscular Hemoglobin 31.5 pg (27.0-31.0); Mean Corpuscular Volume 99.2 fL (78.0-98.0); Mean Platelet Volume 10.8 fL (7.4-10.4); Platelet Count 36 thou/uL (130-400); Red Blood Cell (RBC) Count 3.74 mill/uL (4.20-5.40); White Blood Cell (WBC) Count 10.4 thou/uL (4.8-10.8)
[2021-12-12] MEDS: Sodium Chloride 1 GM TAB PO SCH (09:54)
[2021-12-12] MEDS: Atorvastatin Calcium 20 MG TAB PO SCH (09:54)
[2021-12-12] MEDS: Furosemide 40 MG/4 ML VIAL SLOW IVP SCH (11:00)
[2021-12-12] MEDS ORDERED: Digoxin 0.5 MG/2 ML AMP SLOW IVP SCH ×2 (12:45→20:00)
[2021-12-12 14:37] LABS: Heparin-Induced Ab (HITA) 0.111 OD (0.000-0.400)
[2021-12-13 04:50] LABS: #Eosinphils 0.1 thou/uL (0.0-0.7); #Lymphocytes 0.5 thou/uL (1.20-3.40); #Monocytes 0.8 thou/uL (0.11-0.59); %Eosinophils 0.8 % (0.0-10.0); %Lymphocytes 6.1 % (21.0-51.0); %Monocytes 9.3 % (0.0-10.0); %Neutrophils 83.8 % (42.0-75.0); Hemoglobin 12.1 g/dL (12.0-16.0); Mean Corpuscular HGB CONC 30.6 g/dL (32.0-36.0); Mean Corpuscular Hemoglobin 30.6 pg (27.0-31.0); Mean Platelet Volume 11.8 fL (7.4-10.4); Platelet Count 37 thou/uL (130-400); RBC Distribution Width 14.3 % (11.5-14.5); Red Blood Cell (RBC) Count 3.97 mill/uL (4.20-5.40); White Blood Cell (WBC) Count 8.4 thou/uL (4.8-10.8)
[2021-12-13 05:03] LABS: Anion Gap 15 mmol/L (10-20); BUN (Urea Nitrogen) 26 mg/dL (9.8-20.1); Calc. Creatinine Clearance 42 mL/min (70-130); Calcium 8.1 mg/dL (7.8-10.44); Carbon Dioxide 29 mmol/L (23-31); Chloride 93 mmol/L (98-107); Estimated GFR 85; Glucose 113 mg/dL (83-110); Potassium 3.8 mmol/L (3.5-5.1); Sodium 133 mmol/L (136-145)
[2021-12-13] MEDS: Atorvastatin Calcium 20 MG TAB PO SCH (09:38)
[2021-12-13] MEDS: Digoxin 0.125 MG TAB PO SCH (09:38)
[2021-12-13] MEDS: Sodium Chloride 1 GM TAB PO SCH ×2 (09:38→20:22)
[2021-12-13] MEDS: Furosemide 40 MG/4 ML VIAL SLOW IVP SCH (09:38)
[2021-12-14 05:00] LABS: #Lymphocytes 0.6 thou/uL (1.20-3.40); #Monocytes 0.9 thou/uL (0.11-0.59); #Neutrophils 7.3 thou/uL (1.40-6.50); %Basophils 0.1 % (0.0-1.0); %Eosinophils 0.4 % (0.0-10.0); %Monocytes 10.4 % (0.0-10.0); %Neutrophils 82.2 % (42.0-75.0); Hemoglobin 12.7 g/dL (12.0-16.0); Mean Corpuscular HGB CONC 30.9 g/dL (32.0-36.0); Mean Corpuscular Hemoglobin 31.3 pg (27.0-31.0); Mean Platelet Volume 11.9 fL (7.4-10.4); Platelet Count 24 thou/uL (130-400); RBC Distribution Width 14.1 % (11.5-14.5); Red Blood Cell (RBC) Count 4.07 mill/uL (4.20-5.40); White Blood Cell (WBC) Count 8.8 thou/uL (4.8-10.8)
[2021-12-14 05:10] LABS: Anion Gap 15 mmol/L (10-20); BUN (Urea Nitrogen) 17 mg/dL (9.8-20.1); Calc. Creatinine Clearance 48 mL/min (70-130); Calcium 8.4 mg/dL (7.8-10.44); Carbon Dioxide 32 mmol/L (23-31); Chloride 92 mmol/L (98-107); Estimated GFR 88; Glucose 88 mg/dL (83-110); Potassium 3.9 mmol/L (3.5-5.1); Sodium 135 mmol/L (136-145)
[2021-12-14] MEDS: Sodium Chloride 1 GM TAB PO SCH ×2 (08:58→20:57)
[2021-12-14] MEDS: Digoxin 0.125 MG TAB PO SCH (08:58)
[2021-12-14] MEDS: Atorvastatin Calcium 20 MG TAB PO SCH (08:58)
[2021-12-14] MEDS: Furosemide 40 MG/4 ML VIAL SLOW IVP SCH (08:59)
[2021-12-14 20:36] LABS: Actual Bicarbonate (HCO3a) 38.5 mEq/L (22-28); Base Excess (BEa) 7.2 mEq/L (-2.0 to +3.0); Calcium, Ionized (arterial) 1.15 mmol/L (1.12-1.30); Hemoglobin (Hb) 13.6 g/dL (12.0-16.0); O2 Tension (PaO2), arterial 91.3 mmHg (> 60.0); Potassium - ABG Lab 3.95 mmol/L (3.70-5.30)
[2021-12-14 20:38] LABS: pH, Arterial 7.22 (7.35-7.45)
[2021-12-14 20:39] LABS: CO2 Tension 95.5 mmHg (35.0-45.0)
[2021-12-14 20:40] LABS: ALV-art Gradient 431.025 mmHg (0-20); Puncture Site LRA
[2021-12-14 20:47] LABS: #Lymphocytes 0.3 thou/uL (1.20-3.40); #Monocytes 0.6 thou/uL (0.11-0.59); %Eosinophils 0.1 % (0.0-10.0); %Lymphocytes 4.3 % (21.0-51.0); %Neutrophils 88.7 % (42.0-75.0); Hemoglobin 13.3 g/dL (12.0-16.0); Mean Corpuscular HGB CONC 29.9 g/dL (32.0-36.0); Mean Platelet Volume 10.6 fL (7.4-10.4); Platelet Count 51 thou/uL (130-400); RBC Distribution Width 14.3 % (11.5-14.5); Red Blood Cell (RBC) Count 4.28 mill/uL (4.20-5.40); White Blood Cell (WBC) Count 7.9 thou/uL (4.8-10.8)
[2021-12-14 21:00] LABS: Lactic Acid 3.2 mmol/L (0.5-2.2)
[2021-12-14 21:06] LABS: ALT (SGPT) 17 U/L (8-55); AST (SGOT) 24 U/L (5-34); Albumin 2.5 g/dL (3.4-4.8); Alkaline Phosphatase 205 U/L (40-110); Anion Gap 16 mmol/L (10-20); BUN (Urea Nitrogen) 22 mg/dL (9.8-20.1); Bilirubin, Total 1.3 mg/dL (0.2-1.2); Calc. Creatinine Clearance 35 mL/min (70-130); Calcium 8.8 mg/dL (7.8-10.44); Carbon Dioxide 36 mmol/L (23-31); Chloride 90 mmol/L (98-107); Estimated GFR 71; Globulin 3.4 g/dL (2.4-3.5); Glucose 103 mg/dL (83-110); Magnesium 1.6 mg/dL (1.6-2.6); Protein, Total 5.9 g/dL (5.8-8.1); Sodium 138 mmol/L (136-145)
[2021-12-14 21:09] LABS: Helmet Cells SLIGHT = 2-5 cells (100X) (0-1/hpf); Hypochromia SLIGHT = 6-15 cells (100X) (0-5/hpf); MDiff Complete? YES; Macrocytosis SLIGHT = 6-15 cells (100X) (0-5/hpf); Platelet Morphology Comment Appears Decreased; Stomatocytes SLIGHT = 2-5 cells (100X) (0-1/hpf); Target Cells SLIGHT = 2-5 cells (100X) (0-1/hpf); Tear Drops SLIGHT = 2-5 cells (100X) (0-1/hpf)
[2021-12-14 23:59] VITALS: BP 113/55; TEMP 99
== END 2021-12-15 03:15 | disposition expired | DRG 175 ==
LOC: ERS 18:26 → 2NO 21:13
PROVIDERS: ADMIT Student in an Organized Health Care Education/Training Program; ATTEND Student in an Organized Health Care Education/Training Program
DX: I26.99 Other pulmonary embolism without acute cor pulmonale (principal); I21.A1 Myocardial infarction type 2; J81.0 Acute pulmonary edema; J96.01 Acute respiratory failure with hypoxia; S22.32XA Fracture of one rib, left side, initial encounter for closed fracture; J90 Pleural effusion, not elsewhere classified; E22.2 Syndrome of inappropriate secretion of antidiuretic hormone; R64 Cachexia; Z68.1 Body mass index [BMI] 19.9 or less, adult; I50.32 Chronic diastolic (congestive) heart failure; Z51.5 Encounter for palliative care; Z66 Do not resuscitate; Z20.822 Contact with and (suspected) exposure to COVID-19; I35.0 Nonrheumatic aortic (valve) stenosis; D69.6 Thrombocytopenia, unspecified; E83.51 Hypocalcemia; E78.2 Mixed hyperlipidemia; X58.XXXA Exposure to other specified factors, initial encounter; R33.9 Retention of urine, unspecified; Z79.899 Other long term (current) drug therapy; Z87.891 Personal history of nicotine dependence; Z88.2 Allergy status to sulfonamides; Z88.1 Allergy status to other antibiotic agents
CPT/HCPCS: 36415; 36416; 36600; 71045; 71275; 80048; 80053; 82553; 82805; 83605; 83735; 83880; 83930; 83935; 84300; 84443; 84484; 85025; 85379; 85610; 85730; 93005; 93010; 93306; 96365; 96375; 97139; J0456; J0696; J0883; J1160; J1940; J3480; J7030; J7050; J7620; Q9967; U0002; U0003; U0005